=== PATIENT | male | born 1970 | race Caucasian/White ===

== ENCOUNTER 2019-08-06 20:42 | Observation (INO) | payer BC ==
[2019-08-06 21:08] LABS: Absolute Lymphocytes (CBC) 2.6 K/uL (0.7-4.9); Basophils % 0.8 % (0-1.3); Lymphocytes % 32.6 % (15.3-44.8); MPV 7.2 fL (7.6-11.3); RBC Red Blood Cell Count 4.99 M/uL (4.33-5.43)
[2019-08-06 21:09] LABS: Protime INR 1.04
[2019-08-06] MEDS ORDERED: ONDANSETRON 4 MG/2 ML VIAL ONE (21:27)
[2019-08-06] MEDS ORDERED: MORPHINE 4 MG/ML SYR ONE (21:27)
[2019-08-06 21:38] LABS: ALT/SGPT 43 U/L (12-78); AST/SGOT 25 U/L (15-37); Albumin 3.9 g/dL (3.4-5.0); Alkaline Phosphatase 73 U/L (45-117); BUN Blood Urea Nitrogen 13 mg/dL (7-18); Bicarbonate 28 mmol/L (21-32); Bilirubin Direct < 0.1 mg/dL (0-0.2); Bilirubin Total 0.3 mg/dL (0.2-1.0); Glucose Level 122 mg/dL (74-106); Magnesium 2.2 mg/dL (1.8-2.4); NT PRO-BNP 8 pg/mL (<125); Potassium 3.9 mmol/L (3.5-5.1); Protein, Total 7.4 g/dL (6.4-8.2); Sodium Level 140 mmol/L (136-145); Troponin (Emerg Dept Use Only) < 0.02 ng/mL (0.0-0.045)
--- NOTE | 2019-08-06 22:28 | RAD REPORT ---
EXAM DESCRIPTION: RAD - Chest Single View - 08/06/2019 9:52 pm CLINICAL HISTORY: CHEST PAIN Chest pain. COMPARISON: Chest Single View dated 11/24/2017 FINDINGS: Portable technique limits examination quality. The lungs are grossly clear. The heart is normal in size. No displaced fractures. IMPRESSION: No acute intrathoracic process suspected.
[2019-08-06] MEDS ORDERED: KETOROLAC 30 MG/ML INJ ONE (22:47)
[2019-08-06] MEDS ORDERED: ENOXAPARIN 100 MG/ML SYR SQ ONE (23:14)
[2019-08-06] MEDS ORDERED: NITROGLYCERIN 1 GM PKT TD ONE (23:14)
--- NOTE | 2019-08-06 23:16 | EDPHYS ---
Physician Documentation [facility] Name: Chandana Le Age: 48 yrs Sex: Male : 1970 Arrival Date: 08/06/2019 Time: 20:42 Bed 4 Private MD: ED Physician Philip Perez HPI: 08/06 22:40 This 48 yrs old Male presents to ER via Ambulatory with complaints of Chest tw4 Pain. 22:40 The patient or guardian reports chest pain that is located primarily in the anterior tw4 chest wall, left. Onset: today. The pain radiates to Associated signs and symptoms: The patient has no apparent associated signs or symptoms. The chest pain is described as sharp. Duration: The patient or guardian reports a single episode. Severity of pain: At its worst the pain was moderate in the emergency department the pain is unchanged. The patient has not experienced similar symptoms in the past. Historical: - Allergies: 20:54 PENICILLINS; tl1 - Home Meds: 20:54 Lisinopril Oral [Active]; Phenytoin Oral [Active]; depression medication [Active]; tl1 - PMHx: 20:54 Seizures; Hypertension; Depression; tl1 - PSHx: 20:54 None; tl1 - Immunization history:: Adult Immunizations up to date. - Social history:: Smoking status: Patient/guardian denies using tobacco, Patient/guardian denies using alcohol, street drugs. - Ebola Screening: : Patient negative for fever greater than or equal to 101.5 degrees Fahrenheit, and additional compatible Ebola Virus Disease symptoms Patient denies exposure to infectious person Patient denies travel to an Ebola-affected area in the 21 days before illness onset. ROS: 22:40 Constitutional: Negative for fever, chills, and weight loss, Eyes: Negative for injury, tw4 pain, redness, and discharge, Cardiovascular: Negative for chest pain, palpitations, and edema, Respiratory: Negative for shortness of breath, cough, wheezing, and pleuritic chest pain, Abdomen/GI: Negative for abdominal pain, nausea, vomiting, diarrhea, and constipation, Back: Negative for injury and pain, MS/Extremity: Negative for injury and deformity, Skin: Negative for injury, rash, and discoloration. Exam: 22:40 Head/Face: Normocephalic, atraumatic. Eyes: Pupils equal round and reactive to light, tw4 extra-ocular motions intact. Lids and lashes normal. Conjunctiva and sclera are non-icteric and not injected. Cornea within normal limits. Periorbital areas with no swelling, redness, or edema. Chest/axilla: Normal chest wall appearance and motion. Nontender with no deformity. No lesions are appreciated. Cardiovascular: Regular rate and rhythm with a normal S1 and S2. No gallops, murmurs, or rubs. Normal PMI, no JVD. No pulse deficits. Respiratory: Lungs have equal breath sounds bilaterally, clear to auscultation and percussion. No rales, rhonchi or wheezes noted. No increased work of breathing, no retractions or nasal flaring. Abdomen/GI: Soft, non-tender, with normal bowel sounds. No distension or tympany. No guarding or rebound. No evidence of tenderness throughout. Back: No spinal tenderness. No costovertebral tenderness. Full range of motion. MS/ Extremity: Pulses equal, no cyanosis. Neurovascular intact. Full, normal range of motion. Neuro: Awake and alert, GCS 15, oriented to person, place, time, and situation. Cranial nerves II-XII grossly intact. Motor strength 5/5 in all extremities. Sensory grossly intact. Cerebellar exam normal. Normal gait. 22:40 Constitutional: The patient appears in obvious distress, mildly distressed. Vital Signs: 20:52 BP 165 / 96; Pulse 91; Resp 15; Temp 98.7(O); Pulse Ox 97% ; Weight 94.35 kg; Height 5 tl1 ft. 7 in. (170.18 cm); Pain 8/10; 21:15 BP 143 / 81; Pulse 84; Resp 17; Pulse Ox 98% on R/A; lp1 21:33 BP 135 / 87; Pulse 78; Resp 13; Pulse Ox 96% on R/A; lp1 22:20 BP 136 / 77; Pulse 75; Resp 15; Pulse Ox 97% on R/A; lp1 23:30 BP 126 / 74; Pulse 72; Resp 16; Pulse Ox 96% on R/A; lp1 08/07 00:09 BP 131 / 68; Pulse 80; Resp 19; Pulse Ox 98% on R/A; Pain 5/10; lp1 08/06 20:52 Body Mass Index 32.58 (94.35 kg, 170.18 cm) tl1 MDM: 08/06 20:47 Patient medically screened. tw4 08/07 00:01 Differential diagnosis: abnormal EKG, acute myocardial infarction, anxiety, tw4 myocarditis, pancreatitis, pulmonary embolus, stable angina, thoracic aortic disection, unstable angina. The patient was given aspirin in the Emergency Department. Data reviewed: vital signs, nurses notes. Counseling: I had a detailed discussion with the patient and/or guardian regarding: the historical points, exam findings, and any diagnostic results supporting the discharge/admit diagnosis, lab results, radiology results. Physician consultation: Danis Malone DO regarding admission, to the telemetry unit. and will see patient in inpatient room. Special discussion:. 01:35 HEART Score: History: Moderately Suspicious (1), ECG: Normal (0), Age: > 45 and < 65 tw4 years (1), Risk Factors: 1 or 2 risk factors (1), Troponin: < or = 1 x Normal Limit (0), Total Score = 2. Data interpreted: school lunch monitor: rhythm is normal sinus rhythm, Pulse oximetry: Interpretation: normal. Test interpretation: by ED physician or midlevel provider: ECG, plain radiologic studies. 01:42 Medication response: morphine partially relieved the patient's pain. Response to tw4 treatment: the patient's symptoms have mildly improved after treatment, and as a result, I will admit patient. ED course: Pt rested comfortably on the stretcher. Pt complained of pain after morphine. CT scan was negative for dissection. Suspicion for PE was low. Will admit for ACS and treat with Lovenox and nitrates. 08/06 20:58 Order name: Basic Metabolic Panel tw4 08/06 20:58 Order name: CBC with Diff tw4 08/06 20:58 Order name: LFT's tw4 08/06 20:58 Order name: Magnesium tw4 08/06 20:58 Order name: NT PRO-BNP tw4 08/06 20:58 Order name: PT-INR tw4 08/06 20:58 Order name: Troponin (emerg Dept Use Only) tw4 08/06 20:58 Order name: XRAY Chest (1 view) tw4 08/06 21:04 Order name: Angio Aorta For Dissection EDWI 08/06 20:58 Order name: EKG; Complete Time: 20:58 tw4 08/06 20:58 Order name: Cardiac monitoring; Complete Time: 21:18 tw4 08/06 20:58 Order name: EKG - Nurse/Tech; Complete Time: 21:18 tw4 08/06 20:58 Order name: IV Saline Lock; Complete Time: 21:18 tw4 08/06 20:58 Order name: Labs collected and sent; Complete Time: 21:18 tw4 08/06 20:58 Order name: O2 Per Protocol; Complete Time: 21:18 tw4 08/06 20:58 Order name: O2 Sat Monitoring; Complete Time: 21:18 tw4 EC:00 Rhythm is regular. QRS [place] is Normal. CO interval is normal. QRS interval is normal. tw4 QT interval is normal. No Q waves. T waves are Normal. No ST changes noted. Clinical impression: Normal ECG. Interpreted by me. Reviewed by me. Administered Medications: 08/06 21:32 Drug: Zofran 4 mg Route: IVP; Site: left antecubital; lp1 22:00 Follow up: Response: No adverse reaction lp1 21:32 Drug: morphine 4 mg {Note: RASS 1.} Route: IVP; Site: left antecubital; lp1 22:00 Follow up: Response: Pain is decreased; RASS: Alert and Calm (0) lp1 22:48 Drug: TORadol 30 mg Route: IVP; Site: left antecubital; lp1 23:15 Follow up: Response: No adverse reaction; No change in condition lp1 23:21 Drug: Nitro-Bid Ointment 2 % 1 inches Route: Transdermal; Site: anterior chest wall; lp1 23:22 Drug: Lovenox 1 mg/kg Route: Sub-Q; Site: right lower abdomen; lp1 08/07 00:10 Follow up: Response: No adverse reaction lp1 Disposition: 08/06/19 23:15 Hospitalization ordered by Danis Malone for Observation. Preliminary diagnosis is Unstable angina. - Bed requested for Telemetry/MedSurg (observation). - Status is Observation. lp1 - Condition is Stable. - Problem is new. - Symptoms have improved. UTI on Admission? No Signatures: Dispatcher [employer] [facility] Sherita Núñez RN RN Nikia Hernandez RN RN lp1 Mandi Don, RN RN tl1 Philip Perez MD MD tw4 Corrections: (The following items were deleted from the chart) 08/06 21:04 21:00 Dissection W/ Wo Con+CT.RAD.BRZ ordered. EDMS EDMS 23:49 23:15 Hospitalization Ordered by Philip Perez MD for Observation. Preliminary diagnosis is Unstable angina. Bed requested for Telemetry/MedSurg (observation). Status is Observation. Condition is Stable. Problem is new. Symptoms have improved. UTI on Admission? No. tw4 08/07 00:11 08/06 23:49 08/06/2019 23:15 Hospitalization Ordered by Danis Malone DO for lp1 Observation. Preliminary diagnosis is Unstable angina. Bed requested for Telemetry/MedSurg (observation). Status is Observation. Condition is Stable. Problem is new. Symptoms have improved. UTI on Admission? No. mw
--- NOTE | 2019-08-06 23:16 | ER ---
Nurse's Notes [facility] Name: Chandana Le Age: 48 yrs Sex: Male : 1970 Arrival Date: 08/06/2019 Time: 20:42 Bed 4 Private MD: Diagnosis: Unstable angina Presentation: 08/06 20:51 Presenting complaint: Patient states: Chest pain started around 3 hours ago and it tl1 radiates to my back. I have been sweating and feel nauseated. I have also had numbness in my feet for 2 weeks. Transition of care: patient was not received from another setting of care. Onset of symptoms was August 06, 2019. Risk Assessment: Do you want to hurt yourself or someone else? Patient reports no desire to harm self or others. Initial Sepsis Screen: Does the patient meet any 2 criteria? No. Patient's initial sepsis screen is negative. Does the patient have a suspected source of infection? No. Patient's initial sepsis screen is negative. Care prior to arrival: None. 20:51 Method Of Arrival: Ambulatory tl1 20:51 Acuity: GLEN 2 tl1 Historical: - Allergies: 20:54 PENICILLINS; tl1 - Home Meds: 20:54 Lisinopril Oral [Active]; Phenytoin Oral [Active]; depression medication [Active]; tl1 - PMHx: 20:54 Seizures; Hypertension; Depression; tl1 - PSHx: 20:54 None; tl1 - Immunization history:: Adult Immunizations up to date. - Social history:: Smoking status: Patient/guardian denies using tobacco, Patient/guardian denies using alcohol, street drugs. - Ebola Screening: : Patient negative for fever greater than or equal to 101.5 degrees Fahrenheit, and additional compatible Ebola Virus Disease symptoms Patient denies exposure to infectious person Patient denies travel to an Ebola-affected area in the 21 days before illness onset. Screenin:17 Abuse screen: Denies threats or abuse. Denies injuries from another. Nutritional lp1 screening: No deficits noted. Tuberculosis screening: No symptoms or risk factors identified. Fall Risk None identified. Assessment: 20:45 General: Appears uncomfortable, Behavior is anxious. Pain: Complains of pain in chest lp1 Pain radiates to back and left arm Pain currently is 9 out of 10 on a pain scale. Quality of pain is described as pressure, sharp, Pain began 3 hours ago. Neuro: Level of Consciousness is awake, alert, obeys commands, Oriented to person, place, time, situation. Cardiovascular: Capillary refill < 3 seconds in bilateral fingers toes. Respiratory: Respiratory effort is even, Breath sounds are clear bilaterally. GI: Abdomen is non-distended, Reports nausea. : No signs and/or symptoms were reported regarding the genitourinary system. EENT: No signs and/or symptoms were reported regarding the EENT system. Derm: Skin is intact, Skin is clammy, Skin is normal. Musculoskeletal: No deficits noted. 21:30 Reassessment: Provider notified of patient discomfort to chest and back; Verbal order lp1 for Morphine 4 mg IV, Zofran 4 mg IV. 22:19 Reassessment: Patient returned from CT; States "They gave me that stuff in my IV and lp1 now the pain is back"; States pain to chest, radiating to back. 23:45 Reassessment: Patient appears in no apparent distress at this time. Patient states some lp1 relief, "The pain comes and goes"; Family at bedside. Vital Signs: 20:52 BP 165 / 96; Pulse 91; Resp 15; Temp 98.7(O); Pulse Ox 97% ; Weight 94.35 kg; Height 5 tl1 ft. 7 in. (170.18 cm); Pain 8/10; 21:15 BP 143 / 81; Pulse 84; Resp 17; Pulse Ox 98% on R/A; lp1 21:33 BP 135 / 87; Pulse 78; Resp 13; Pulse Ox 96% on R/A; lp1 22:20 BP 136 / 77; Pulse 75; Resp 15; Pulse Ox 97% on R/A; lp1 23:30 BP 126 / 74; Pulse 72; Resp 16; Pulse Ox 96% on R/A; lp1 08/07 00:09 BP 131 / 68; Pulse 80; Resp 19; Pulse Ox 98% on R/A; Pain 5/10; lp1 08/06 20:52 Body Mass Index 32.58 (94.35 kg, 170.18 cm) tl1 ED Course: 08/06 20:42 Patient arrived in ED. ds1 20:45 Patient has correct armband on for positive identification. Placed in gown. Bed in low lp1 position. Call light in reach. monitor technician on. Pulse ox on. NIBP on. 20:47 Philip Perez MD is Attending Physician. tw4 20:51 Nikia Jackson, RN is Primary Nurse. lp1 20:52 Triage completed. tl1 20:54 Arm band placed on right wrist. EKG completed in triage. Results shown to MD. tl1 20:54 No provider procedures requiring assistance completed. Inserted saline lock: 20 gauge tl1 in left antecubital area, using aseptic technique. Blood collected. 21:03 Radiology exam delayed due to lab results not completed at this time. (BUN/Creatinine). sj 21:17 Patient maintains SpO2 saturation greater than 95% on room air. lp1 21:52 XRAY Chest (1 view) In Process Unspecified. EDMS 22:04 Angio Aorta For Dissection In Process Unspecified. EDMS 23:14 Philip Perez MD is Hospitalizing Provider. tw4 23:49 Hospitalizing Provider role handed off by Philip Perez MD 23:49 Danis Malone DO is Hospitalizing Provider. mw 23:53 Patient admitted, IV remains in place. lp1 Administered Medications: 21:32 Drug: Zofran 4 mg Route: IVP; Site: left antecubital; lp1 22:00 Follow up: Response: No adverse reaction lp1 21:32 Drug: morphine 4 mg {Note: RASS 1.} Route: IVP; Site: left antecubital; lp1 22:00 Follow up: Response: Pain is decreased; RASS: Alert and Calm (0) lp1 22:48 Drug: TORadol 30 mg Route: IVP; Site: left antecubital; lp1 23:15 Follow up: Response: No adverse reaction; No change in condition lp1 23:21 Drug: Nitro-Bid Ointment 2 % 1 inches Route: Transdermal; Site: anterior chest wall; lp1 23:22 Drug: Lovenox 1 mg/kg Route: Sub-Q; Site: right lower abdomen; lp1 08/07 00:10 Follow up: Response: No adverse reaction lp1 Outcome: 08/06 23:15 Decision to Hospitalize by Provider. tw4 23:54 Condition: stable lp1 23:54 Instructed on the need for admit. 08/07 00:07 Admitted to Tele accompanied by tech, family with patient, via wheelchair, room 409, lp1 with chart, Report called to TOSHIA Maloney 00:11 Patient left the ED. lp1 Signatures: Dispatcher [employer] EDMS Sherita Núñez RN RN Raquel Westfall Demi ds1 Nikia Jackson RN RN lp1 Mandi Don RN RN tl1 Philip Perez MD MD tw4
--- NOTE | 2019-08-06 23:27 | P.HP ---
Certification for Inpatient Patient admitted to: Observation With expected LOS: <2 Midnights Patient will require the following post-hospital care: None Practitioner: I am a practitioner with admitting privileges, knowledge of patient current condition, hospital course, and medical plan of care. Services: Services provided to patient in accordance with Admission requirements found in Title 42 Section 412.3 of the Code of Federal Regulations Patient History Date of Service: 08/06/19 Primary Care Provider: Dr. White Reason for admission: Chest pain History of Present Illness: 48-year-old male with history of hypertension and seizure disorder. Patient reported chest pain earlier today. He had pain to the right side of the chest. It felt like someone was sitting on him. It was a pressure-like sensation. The pain continued to increase. It was associated with nausea but no vomiting. He denied any shortness of breath. He has not seen Cardiology for this in the past. Decided come to the ER for further evaluation. In the ER patient evaluated. EKG shows no significant EKG changes. Blood pressure stable. Chest x-ray unremarkable. CT chest dissection unremarkable. Initial troponin unremarkable. Sodium 140, potassium 3.9, creatinine 1.1 GFR 72. Glucose 122. Due to the nature of his symptoms the patient was admitted for further evaluation. When I saw the patient in the ER, pain improved. Patient had been given morphine in the ER. Allergies No Known Allergies Allergy (Unverified 11/24/17 17:24) Home medications list reviewed: Yes - Past Medical/Surgical History Diabetic: No -: Hypertension -: Seizure disorder Past Surgical History: Patient denies surgical history Psychosocial/ Personal History: Patient is . He works as plant electrician - Family History Family History: Reviewed- Non-Contributory - Social History Smoking Status: Never smoker Alcohol use: No CD- Drugs: No Caffeine use: Yes Place of Residence: Home Review of Systems General: As per HPI Eyes: Unremarkable ENT: Unremarkable Respiratory: Unremarkable Cardiovascular: Chest Pain, As per HPI Gastrointestinal: Nausea, As per HPI Genitourinary: Unremarkable Musculoskeletal: Back Pain, As per HPI Integumentary: Unremarkable Neurological: Unremarkable Lymphatics: Unremarkable Physical Examination - Physical Exam General: Alert, In no apparent distress, Oriented x3, Cooperative HEENT: Atraumatic, Normocephalic, PERRLA, Mucous membr. moist/pink Neck: Supple, No Thyromegaly Respiratory: Clear to auscultation bilaterally, Normal air movement Cardiovascular: Normal pulses, Regular rate/rhythm Gastrointestinal: Normal bowel sounds, Soft and benign, Non-distended, No ascites, No tenderness, No masses, No rebound, No guarding Musculoskeletal: No contractures, No erythema, No tenderness, No warmth Integumentary: No tenderness/swelling, No erythema, No warmth, No cyanosis Neurological: Normal speech, Normal strength at 5/5 x4 extr, Normal tone, Normal affect - Studies Laboratory Data (last 24 hrs) 08/06/19 20:45: PT 12.3, INR 1.04 08/06/19 20:45: WBC 8.0, Hgb 14.3, Hct 42.0, Plt Count 299 08/06/19 20:45: Sodium 140, Potassium 3.9, BUN 13, Creatinine 1.10, Glucose 122 H, Magnesium 2.2, Total Bilirubin 0.3, AST 25, ALT 43, Alkaline Phosphatase 73 Assessment and Plan - Plan Impression: Chest pain Hypertension Seizure disorder Plan: Chest pain: Patient admitted for further evaluation. Will continue to monitor telemetry and cardiac enzymes. Will obtain echocardiogram. Will consult cardiology to further evaluate. Will start aspirin, continue lisinopril, and provide Lipitor. Will check fasting lipid panel in the morning. DVT prophylaxis-Lovenox initiated. Will keep the patient NPO after midnight as the patient may require cardiac evaluation. Await Cardiology recommendation. Consider inpatient versus outpatient workup. Anticipate discharge within the next 24 hr pending clinical evaluation. I will turn the service over to Dr. Qureshi tomorrow. I will go over the plan of care with him. Hypertension: Restart lisinopril 10 mg daily. Will monitor and adjust appropriately. Seizure disorder: Will continue his medication of phenotype owing 300 mg every a.m. and 400 mg every p.m.. Discharge Plan: Home Plan to discharge in: 24 Hours - Advance Directives Does patient have a Living Will: No Does patient have a Durable POA for Healthcare: No - Code Status/Comfort Care Code Status Assessed: Yes (Patient is full code) Time Spent Managing Pts Care (In Minutes): 55
[2019-08-07] MEDS ORDERED: PHENYTOIN ER 100 MG CAP PO SCH ×2 (00:18→02:00)
[2019-08-07] MEDS ORDERED: HYDROCODONE/APAP 7.5/325 MG TAB PO PRN (00:18)
[2019-08-07] MEDS ORDERED: ACETAMINOPHEN 500 MG TAB PO PRN (00:18)
[2019-08-07] MEDS ORDERED: ONDANSETRON 4 MG/2 ML VIAL IV PRN (00:18)
[2019-08-07] MEDS ORDERED: TRAMADOL HCL 50 MG TAB PO PRN (00:18)
[2019-08-07 00:58] VITALS: BMI 32.4
[2019-08-07 03:58] LABS: Urine Appearance CLEAR; Urine Bilirubin NEGATIVE (NEG); Urine Blood NEGATIVE (NEG); Urine Color YELLOW; Urine Glucose NEGATIVE (NEG); Urine Protein NEGATIVE (NEG); Urine Specific Gravity >=1.030 (1.005-1.030); Urine Urobilinogen 0.2 mg/dL (0.2-1.0)
[2019-08-07 04:38] LABS: Urine Microscopic Reflex NO UMIC
[2019-08-07 05:25] LABS: BUN Blood Urea Nitrogen 19 mg/dL (7-18); Bicarbonate 27 mmol/L (21-32); CKMB Creatine Kinase MB 1.2 ng/mL (0.3-3.6); Creatine Phosphokinase 102 U/L (39-308); Glucose Level 107 mg/dL (74-106); HDL Cholesterol 39 mg/dL (40-60); LDL Cholesterol, Calculated ND (<130); Magnesium 2.1 mg/dL (1.8-2.4); Potassium 3.9 mmol/L (3.5-5.1); Sodium Level 139 mmol/L (136-145); Troponin I < 0.02 ng/mL (0.0-0.045)
[2019-08-07 05:37] LABS: LDL, Direct 106 mg/dL (100-129)
[2019-08-07] MEDS ORDERED: POTASSIUM CL SA 10 MEQ TAB PO ONE (05:48)
[2019-08-07 06:00] VITALS: TEMP 97.7
--- NOTE | 2019-08-07 06:29 | EKG ---
Test Date: 2019-08-06 Test Time: 20:49:35 Director Of Critical Care: REHANA MEASUREMENT RESULTS: Intervals: Rate: 89 [place]: 134 QRSD: 70 QT: 346 QTc: 420 [place]: P: 24 [place]: 134 QRS: 17 T: 22 INTERPRETIVE STATEMENTS: Normal sinus rhythm Normal ECG Compared to ECG 11/08/2005 23:39:00 Sinus tachycardia no longer present Electronically Signed On 08-07-19 06:29:20 CDT by Manoj Forbes
[2019-08-07] MEDS: ASPIRIN EC 81 MG TAB PO SCH ×2 (08:52→10:18)
[2019-08-07] MEDS: PHENYTOIN ER 100 MG CAP PO SCH ×2 (08:53→10:17)
[2019-08-07] MEDS: LISINOPRIL 10 MG TAB PO SCH ×2 (08:57→10:17)
[2019-08-07] MEDS: FAMOTIDINE 20 MG TAB PO SCH ×2 (08:58→10:18)
[2019-08-07] MEDS ORDERED: ENOXAPARIN 40 MG/0.4 ML SQ SCH ×2 (09:00→21:00)
--- NOTE | 2019-08-07 09:36 | RAD REPORT ---
EXAM DESCRIPTION: US - Abdomen Exam Limited - 08/07/2019 9:15 am CLINICAL HISTORY: gallstone COMPARISON: No comparisons FINDINGS: The gallbladder demonstrates no gallstones. No pericholecystic fluid or gallbladder wall t hickening. The common bile duct is normal measuring 4-5 mm. The liver demonstrates no findings of intrahepatic biliary dilatation. IMPRESSION: Unremarkable examination.
--- NOTE | 2019-08-07 09:53 | CON ---
Chief Complaint: Chest pain. History Of Present Illness: Yesterday, the patient was sitting. He had been eating when he had the onset of pain in the right side of his chest. It radiated to the right shoulder blade. Since he has been in the hospital, EKGs and cardiac enzymes were normal. He has not had an examination of his ga llbladder at this point. The patient has never had myocardial infarction or stroke. Does not have d iabetes. He uses tobacco. He chews tobacco. He has never had any kind of vascular surgery or inter vention. He has normal exercise tolerance. He has had no previous surgeries. He has had a chest x- ray that looks normal. A CT scan looking for dissection has been done and interpretation was not carla ilable readily and have to call to get the results I think, obviously I think he has an abnormal aort a indicating dissection of the pulmonary embolus on that exam, everything else I say will change, but I am very suspicious that the main thing causing his symptoms is cholecystitis. We will do a treadm ill test and echo and if those are normal, we can proceed to checking on his gallbladder. Thank you very much for your kind referral of Mr. Le. I will follow him with you. RHONDA Voice ID: [id number] Report ID: [id number]
--- NOTE | 2019-08-07 10:48 | TREADMILL ---
70% H.R.: 122 85% H.R.: 148 90% H.R.: 157 100% H.R.: 174 DX: CHEST PAIN Date of Study: 08/07/19 Ht: 5 7 Wt: 207 lb 0 oz Consulting Physician: TONY MEDICATIONS: TYLENOL, NORCO, ASPIRIN, LIPITOR, LOVENOX, PRINIVIL, ZOFRAN, ULTRAM HISTORY: 48 YEAR OLD MALE WITH COMPLAINTS OF CHEST PAIN. MEDICAL HISTORY OF SEIZURES, HYPERTENSION, DEPRESSION PHYSICIAL EXAMINATION: RESTING B.P.: 131/99 RESTING H.R.: 70 RESTING EKG: NORMAL PROTOCOL: DINORAH ROUTINE EXERCISE TIME: 6:36 MAXIMUM HEART RATE: 127 73 % OF PREDICTED B.P. AT PEAK STRESS: 173/78 H.R. AT 1 MINUTE POST EXERCISE: 109 IMPRESSION: STRESS TEST STOPPED DUE TO FATIQUE. NO SUPRA VENTRICULAR TACHYCARDIA, NO VENTRICULAR TACHYCARDIA, NO PREMATURE VENTRICULAR COMPLEXES. CHEST PAIN UPON INSPIRATORY BREATHING 6 OR 7/10 ON PAIN SCALE. NO ISCHEMIC EKG CHANGES. SUB MAXIMAL NON DIAGNOSTIC TEST.
--- NOTE | 2019-08-07 10:50 | ECHO ---
HEIGHT: 5 ft 7 in WEIGHT: 207 lb 0 oz DATE OF STUDY: 08/07/[address]: Danis Malone DO 2-DIMENSIONAL: YES M.MODE: YES DOPPLER: YES COLOR FLOW: YES TDS: NO PORTABLE: NO DEFINITY: NO BUBBLE STUDY: NO DIAGNOSIS: CHEST PAIN, HYPERTENSION CARDIAC HISTORY: CATHERIZATION: NO SURGERY: NO PROSTHETIC VALVE: NO PACEMAKER: NO MEASUREMENTS (cm) DIASTOLIC (NORMALS) SYSTOLIC (NORMALS) IVSd 1.0 (0.6-1.2) LA Diam 3.5 (1.9-4.0) LVEF 57% LVIDd 4.3 (3.5-5.7) LVIDs 3.0 (2.0-3.5) %FS 30% LVPWd 1.0 (0.6-1.2) Ao Diam 3.2 (2.0-3.7) 2 DIMENSIONAL ASSESSMENT: RIGHT ATRIUM: NORMAL LEFT ATRIUM: NORMAL RIGHT VENTRICLE: NORMAL LEFT VENTRICLE: NORMAL TRICUSPID VALVE: NORMAL MITRAL VALVE: NORMAL PULMONIC VALVE: NORMAL AORTIC VALVE: NORMAL PERICARDIAL EFFUSION: NONE AORTIC ROOT: NORMAL LEFT VENTRICULAR WALL MOTION: NORMAL. DOPPLER/COLOR FLOW: NORMAL. COMMENTS: NORMAL 2D ECHO WITH DOPPLER. TECHNOLOGIST: GERONIMO HILARIO
--- NOTE | 2019-08-07 10:58 | RAD REPORT ---
EXAM DESCRIPTION: Angio Aorta For Dissection CLINICAL HISTORY: 48 years Male PAIN TECHNIQUE: Contiguous axial images obtained through the chest, abdomen, and pelvis during the rapid administration of IV contrast. Coronal and sagittal reformatted images provided. This CT exam was performed according to our departmental dose-optimization program, which includes on e or more of the following dose reduction techniques: automated exposure control, adjustment of the m A and/or kV according to patient size, and/or use of iterative reconstruction technique. COMPARISON: No prior exams provided for comparison. FINDINGS: There is no aortic aneurysm, dissection, or rupture. The heart is normal in size without pericardial effusion. The major branches of the aorta are patent. No mediastinal or retroperitoneal hemorrhage. No visualized pulmonary embolus. 2 mm right middle lobe pulmonary nodule does not require follow-up. The lungs are otherwise clear. No pleural effusion or pneumothorax. No lymphadenopathy in the chest. The central airways are patent. The liver, biliary tree, gallbladder, pancreas, spleen, adrenal glands, left kidney, urinary bladder, and osseous structures are normal. Nonobstructing calculi in the lower pole of the right kidney measure up to 9 mm. There is no bowel inflammation, obstruction, free intraperitoneal air, or ascites. The appendix is no rmal. IMPRESSION: No aortic aneurysm, dissection, or rupture. No acute findings in the chest, abdomen, or pelvis. Nonobstructing intrarenal calculi on the right. Electronically signed by: Yanique Ennis MD 08/06/2019 10:36 PM CDT Due to temporary technical issues with the PACS/Fluency reporting system, reports are being signed by the in house radiologist as a courtesy to ensure prompt reporting. The interpreting radiologist is f ully responsible for the content of the report.
[2019-08-07 13:51] LABS: CKMB Creatine Kinase MB < 1.0 ng/mL (0.3-3.6); Creatine Phosphokinase 93 U/L (39-308); Troponin I < 0.02 ng/mL (0.0-0.045)
[2019-08-07 14:31] VITALS: O2SAT 96
[2019-08-07 17:07] VITALS: BP 129/76
--- NOTE | 2019-08-07 19:05 | PN ---
Date of Progress Note: 08/07/2019 Subjective: Patient is seen and examined. Chart reviewed and case discussed with RN. Patient states his pain is significantly better. Had exercise stress test today, which he was unable to complete. Medications: List reviewed. Physical Examination: Vital Signs: Temperature 97.7, heart rate 62, blood pressure 129/72, respirations 16, O2 95% on room air. General: Awake, alert, oriented x3. No acute distress, obese male. CV: S1, S2. Regular rate and rhythm. Peripheral pulses present. Respiratory: Moving air well bilaterally. No wheezing or stridor. No use of accessory muscles. Gastrointestinal: Abdomen is soft, nontender, nondistended. Positive bowel sounds. No guarding or rigidity. Extremities: No clubbing, cyanosis, or edema. No calf tenderness. Neuro: Cranial nerves 2 through 12 intact grossly. No focal neurological deficits. Speech is normal. Laboratory Data: Sodium 139, potassium 3.9, chloride 106, CO2 27, BUN 19, creatinine 0.87, glucose 107, calcium 8, magnesium 2.1, triglycerides 454, cholesterol 191, LDL 106, HDL 39. TSH is 3.2. Echocardiogram shows EF of 57%. Exercise stress tests; stress test stopped due to fatigue. No SVT. No ventricular tachycardia. No premature ventricular complexes, chest pain upon inspiratory breathing. No ischemic EKG changes, maximal nondiagnostic test. Abdominal ultrasound shows unremarkable examination. No gallstones. No gallbladder wall thickening. Common bile duct is normal. Assessment: A 48-year-old male with: 1. Chest pain, rule out acute coronary syndrome. Exercise stress test was nondiagnostic. Cardiology recommending cardiac catheterization in a.m. CT dissection was negative. Abdominal ultrasound does not show any gallbladder pathology. Chest x-ray is also clear. We will continue with chest pain guidelines and follow up with further cardiac workup. Patient's triglyceride levels are elevated. Patient has been counseled. Continue with statin. 2. Mixed hyperlipidemia. Continue statin. 3. Essential hypertension. Continue lisinopril. 4. Seizure disorder. We will continue seizure precautions and phenytoin. 5. Obesity. BMI 32. Plan: Complete cardiac workup. ADDENDUM: Patient left AM. Was counseled to stay. States he wants to go to [place] for further workup. SA/MODL Voice ID: [id number] Report ID: [id number] RASHIDA
[2019-08-07] MEDS ORDERED: ATORVASTATIN 40 MG TAB PO SCH (21:00)
== END 2019-08-07 18:30 | disposition left against medical advice (07) ==
LOC: ER 20:42 → ERHOLD 23:23 → 4TH 08-07 00:03
PROVIDERS: ADMIT Family Medicine; ATTEND Family Medicine
DX: R07.9 Chest pain, unspecified (principal); I10 Essential (primary) hypertension; G40.909 Epilepsy, unspecified, not intractable, without status epilepticus; E78.2 Mixed hyperlipidemia; E66.9 Obesity, unspecified; Z68.32 Body mass index [BMI] 32.0-32.9, adult
CPT/HCPCS: 93017; 93005; 93306; 85025; 80048 ×2; 36415; 83721; 83735 ×2; 82550 ×2; 85610; 80061; 80076; 84443; 81003; 84484 ×3; 82553 ×2; 84439; 83880; 71275; 74175; 71045; 76705; 96375; 96372; 96374; 99285; Q9967; J1650; J2405; G0378 ×2

== ENCOUNTER 2021-02-03 10:39 | Emergency (ER) | payer BC ==
[2021-02-03] MEDS ORDERED: HYDROCODONE/APAP 10/325 TAB ONE (13:14)
[2021-02-03] MEDS ORDERED: DIAZEPAM 5 MG TABLET ONE (13:15)
--- NOTE | 2021-02-03 13:37 | RAD REPORT ---
EXAM DESCRIPTION: CT - C Spine Wo Con - 02/03/2021 1:28 pm CLINICAL HISTORY: PAIN Neck injury, radiculopathy COMPARISON: No comparisons FINDINGS: Vertebral body heights are maintained. Moderate spondylosis with disc bulge and endplate o steophyte noted at C5-6. No evidence of acute cervical spine fracture or subluxation. Prevertebral soft tissues are normal in thickness. IMPRESSION: Moderate C5-6 spondylosis is present with prominent posterior disc/osteophyte complex. F ollowup nonemergent MR imaging of the cervical spine would be recommended. All CT scans are performed using dose optimization technique as appropriate and may include automated exposure control or mA/KV adjustment according to patient size.
--- NOTE | 2021-02-03 14:53 | ER ---
Nurse's Notes [facility] Name: Chandana Le Age: 50 yrs Sex: Male : 1970 Arrival Date: 02/03/2021 Time: 10:41 Bed 24 Private MD: Diagnosis: Radiculopathy, cervical region Presentation: 02/03 11:16 Chief complaint: Patient states: Pain to L side of neck and down left arm that is ss described as throbbing, tightness/ shooting. Pt reports when he turns his neck it hurts more. Denies injury. Denies CP. Coronavirus screen: Client denies travel out of the [place] in the last 14 days. Ebola Screen: Patient denies exposure to infectious person. Patient denies travel to an Ebola-affected area in the 21 days before illness onset. Initial Sepsis Screen: Does the patient meet any 2 criteria? No. Patient's initial sepsis screen is negative. Does the patient have a suspected source of infection? No. Patient's initial sepsis screen is negative. Risk Assessment: Do you want to hurt yourself or someone else? Patient reports no desire to harm self or others. Onset of symptoms was February 02, 2021. 11:16 Method Of Arrival: Ambulatory ss 11:16 Acuity: GLEN 3 ss Historical: - Allergies: 11:18 PENICILLINS; ss - PMHx: 11:18 Depression; Hypertension; Seizures; High Cholesterol; ss - Immunization history:: Adult Immunizations up to date. - Social history:: Smoking status: Patient reports use of chewing tobacco. Screenin:24 Abuse screen: Denies threats or abuse. Denies injuries from another. Nutritional hb screening: No deficits noted. Tuberculosis screening: No symptoms or risk factors identified. Fall Risk None identified. Assessment: 12:24 General: Appears in no apparent distress. Behavior is calm, cooperative. Pain: Pain hb currently is 9 out of 10 on a pain scale. Neuro: Level of Consciousness is awake, alert, obeys commands, Oriented to person, place, time, situation. Cardiovascular: Patient's skin is warm and dry. Respiratory: Respiratory effort is even, unlabored, Respiratory pattern is regular, symmetrical. GI: No signs and/or symptoms were reported involving the gastrointestinal system. : No signs and/or symptoms were reported regarding the genitourinary system. EENT: No signs and/or symptoms were reported regarding the EENT system. Derm: Skin is pink, warm \T\ dry. Musculoskeletal: Reports left sided neck pain that radiates to left arm. 14:00 Reassessment: Patient appears in no apparent distress at this time. Patient and/or hb family updated on plan of care and expected duration. Pain level reassessed. Patient is alert, oriented x 3, equal unlabored respirations, skin warm/dry/pink. Vital Signs: 11:16 BP 133 / 93; Pulse 63; Resp 17; Temp 98.4; Pulse Ox 98% on R/A; Weight 88.45 kg; Height ss 5 ft. 7 in. (170.18 cm); Pain 9/10; 11:16 Body Mass Index 30.54 (88.45 kg, 170.18 cm) ED Course: 10:41 Patient arrived in ED. rg4 11:18 Triage completed. ss 11:18 Arm band placed on right wrist. 12:17 Nona Martinez, RN is Primary Nurse. 12:18 Lanre Alfredo PA is PHCP. [facility] 12:18 Alexis Morton MD is Attending Physician. [facility] 12:24 Patient has correct armband on for positive identification. Bed in low position. Call light in reach. 13:26 CT C Spine In Process Unspecified. EDMS 15:08 No provider procedures requiring assistance completed. Patient did not have IV access kg during this emergency room visit. Administered Medications: 13:00 Drug: Boring (HYDROcodone-acetaminophen) 10 mg-325 mg 1 tabs Route: PO; hb 14:00 Follow up: Response: No adverse reaction hb 13:00 Drug: Valium (diazepam) 5 mg Route: PO; hb 14:00 Follow up: Response: No adverse reaction hb Outcome: 14:53 Discharge ordered by . [facility] 15:09 Discharged to home ambulatory. kg 15:09 Condition: improved 15:09 Discharge instructions given to patient, Instructed on discharge instructions, follow up and referral plans. Demonstrated understanding of instructions, follow-up care, medications, Prescriptions given X 3. 15:09 Patient left the ED. kg Signatures: Dispatcher [employer] EDID Lanre Alfredo PA PA Anita Beck RN RN Nona Martinez RN RN Aubrie Khan rg4 Naima Retana kg
--- NOTE | 2021-02-03 14:53 | EDPHYS ---
Physician Documentation [facility] Name: Chandana Le Age: 50 yrs Sex: Male : 1970 Arrival Date: 02/03/2021 Time: 10:41 Bed 24 Private MD: ED Physician Alexis Morton HPI: 02/03 12:59 This 50 yrs old Male presents to ER via Ambulatory with complaints of Arm jmm Pain. 12:59 The patient or guardian complains of pain. Onset: The symptoms/episode began/occurred jmm gradually, 3 day(s) ago. Modifying factors: The symptoms are alleviated by nothing. the symptoms are aggravated by movement. Associated signs and symptoms: Pertinent negatives: chest pain. This is a 50 year old male with a history of depression, epilepsy, that presents to the ED with complaints of left arm pain beginning approx 3 days ago. Denies trauma. Pain radiates from the neck, down the left arm. Denies chest pain, denies weakness. Symptoms worsened with rotation of the neck. . Historical: - Allergies: 11:18 PENICILLINS; ss - PMHx: 11:18 Depression; Hypertension; Seizures; High Cholesterol; ss - Immunization history:: Adult Immunizations up to date. - Social history:: Smoking status: Patient reports use of chewing tobacco. ROS: 12:59 Constitutional: Negative for fever, chills, and weight loss, Cardiovascular: Negative [facility] for chest pain, palpitations, and edema, Respiratory: Negative for shortness of breath, cough, wheezing, and pleuritic chest pain. 12:59 MS/extremity: Positive for pain. 12:59 All other systems are negative. Exam: 12:59 Constitutional: This is a well developed, well nourished patient who is awake, alert, jmm and in no acute distress. Head/Face: atraumatic. Eyes: EOMI, no conjunctival erythema appreciated ENT: Moist Mucus Membranes Neck: Trachea midline, Supple Chest/axilla: Normal chest wall appearance and motion. Cardiovascular: Regular rate and rhythm. No edema appreciated Respiratory: Normal respirations, no respiratory distress appreciated 12:59 Skin: General appearance color normal 12:59 Neck: C-spine: ROM/movement: pain. 12:59 Musculoskeletal/extremity: from appreciated. 13:04 ECG was reviewed by the Attending Physician. [facility] Vital Signs: 11:16 BP 133 / 93; Pulse 63; Resp 17; Temp 98.4; Pulse Ox 98% on R/A; Weight 88.45 kg; Height ss 5 ft. 7 in. (170.18 cm); Pain 9/10; 11:16 Body Mass Index 30.54 (88.45 kg, 170.18 cm) ss MDM: 12:47 Patient medically screened. [facility] 14:49 Data reviewed: vital signs, nurses notes. Counseling: I had a detailed discussion with [facility] the patient and/or guardian regarding: the historical points, exam findings, and any diagnostic results supporting the discharge/admit diagnosis, lab results, radiology results, the need for outpatient follow up, to return to the emergency department if symptoms worsen or persist or if there are any questions or concerns that arise at home. ED course: PE findings most consistent with cervical radiculopathy. Patient advised to follow up with neuro surgery for further evaluation. patient understood and agrees with the plan of care. . 02/03 12:59 Order name: CT C Spine; Complete Time: 13:43 [facility] 02/03 12:59 Order name: EKG - Nurse/Tech; Complete Time: 13:09 [facility] EC:04 Rate is 64 beats/min. Rhythm is regular. QRS [place] is Normal. [place] interval is normal. QRS jmm interval is normal. QT interval is normal. No Q waves. T waves are Normal. No ST changes noted. Reviewed by me. Administered Medications: 13:00 Drug: [place] (HYDROcodone-acetaminophen) 10 mg-325 mg 1 tabs Route: PO; hb 14:00 Follow up: Response: No adverse reaction hb 13:00 Drug: Valium (diazepam) 5 mg Route: PO; hb 14:00 Follow up: Response: No adverse reaction hb Disposition: 02/04 06:24 Co-signature as Attending Physician, Alexis Morton MD I agree with the assessment and kdr plan of care. Disposition: 02/03/21 14:53 Discharged to Home. Impression: Radiculopathy, cervical region. - Condition is Stable. - Discharge Instructions: Cervical Radiculopathy. - Prescriptions for Tylenol- Codeine #3 300-30 mg Oral Tablet - take 1 tablet by ORAL route every 4-6 hours As needed; 20 tablet. Zanaflex 4 mg Oral Tablet - take 1 tablet by ORAL route every 8 hours As needed; 20 tablet. Medrol (Frankie) 4 mg Oral Tablets, Dose Pack - take 1 tablet by ORAL route as directed - follow package instructions; 1 packet. - Medication Reconciliation Form, Thank You Letter, Antibiotic Education, Prescription Opioid Use, Work release form form. - Follow up: Private Physician; When: 2 - 3 days; Reason: Recheck today's complaints, Continuance of care, Re-evaluation by your physician. Signatures: Dispatcher [employer] EDMS Alexis Morton MD MD kdr Mickail, Joel, PA PA jmm Smirch, Shelby RN RN ss Nona Martinez RN RN Naima Retana kg Corrections: (The following items were deleted from the chart) 02/03 15:09 14:53 02/03/2021 14:53 Discharged to Home. Impression: Radiculopathy, cervical region. kg Condition is Stable. Forms are Work release form, Medication Reconciliation Form, Thank You Letter, Antibiotic Education, Prescription Opioid Use. Follow up: Private Physician; When: 2 - 3 days; Reason: Recheck today's complaints, Continuance of care, Re-evaluation by your physician. rebekah
[2021-02-03 15:17] VITALS: BP 133/93; TEMP 98.4; O2SAT 98
== END 2021-02-03 15:09 | disposition home or self-care (01) ==
LOC: ER 10:39
DX: M54.12 Radiculopathy, cervical region (principal); I10 Essential (primary) hypertension; Z88.0 Allergy status to penicillin
CPT/HCPCS: 72125; 93005; 99283

== ENCOUNTER 2021-11-15 16:04 | Emergency (ER) | payer SELFPAY ==
[2021-11-15 17:04] LABS: Lymphocytes % 34.7 % (15.3-44.8); MPV 6.7 fL (7.6-11.3); RBC Red Blood Cell Count 5.27 M/uL (4.33-5.43)
[2021-11-15 17:19] LABS: Potassium 3.8 mmol/L (3.5-5.1)
[2021-11-15 17:31] LABS: Urine Blood Negative (Negative); Urine Glucose Negative (Negative); Urine Protein Negative (Negative)
[2021-11-15] MEDS ORDERED: ONDANSETRON 4 MG/2 ML VIAL ONE (17:58)
[2021-11-15] MEDS ORDERED: NA CHLORIDE 0.9% 1,000 ML ONE ×2 (17:58→19:50)
[2021-11-15] MEDS ORDERED: MORPHINE 4 MG/ML SYR ONE ×2 (17:58→19:50)
--- NOTE | 2021-11-15 18:41 | RAD REPORT ---
EXAM DESCRIPTION: CT - Abdomen Pelvis W Contrast - 11/15/2021 6:09 pm CLINICAL HISTORY: Abdominal pain COMPARISON: none. TECHNIQUE: Computed axial tomography of the abdomen pelvis was obtained. 100 cc Isovue-300 was admin istered intravenously. Oral contrast was not requested which limits evaluation of bowel. All CT scans are performed using dose optimization technique as appropriate and may include automated exposure control or mA/KV adjustment according to patient size. FINDINGS: The liver, spleen, pancreas, adrenal and left kidney appear unremarkable. 18 millimeter cystic structure lower pole right kidney. Within this are 2 calcifications. Largest bull sures 9 millimeters. This probably represents calyceal diverticulum with calculi. There is no evidence of diverticulitis. Normal appendix. Small left inguinal hernia IMPRESSION: Probable right caliceal diverticulum containing calculi No acute abnormality displayed
--- NOTE | 2021-11-15 20:03 | ER ---
Nurse's Notes [facility] Name: Chandana Le Age: 50 yrs Sex: Male : 1970 Arrival Date: 11/15/2021 Time: 16:09 Bed 23 Private MD: Diagnosis: Low back pain;Sciatica, unspecified side;Other intervertebral disc disorders, lumbar region-Left posterolateral L5-S1 Presentation: 11/15 16:25 Chief complaint: Patient states: Back pain, radiates around to groin since yesterday, jl7 also reports "Not urinating right. It's just not right.". Coronavirus screen: At this time, the client does not indicate any symptoms associated with coronavirus-19. Ebola Screen: No symptoms or risks identified at this time. Initial Sepsis Screen: Does the patient meet any 2 criteria? No. Patient's initial sepsis screen is negative. Does the patient have a suspected source of infection? No. Patient's initial sepsis screen is negative. Risk Assessment: Do you want to hurt yourself or someone else? Patient reports no desire to harm self or others. Onset of symptoms was November 14, 2021. 16:25 Method Of Arrival: Wheelchair [facility] 16:25 Acuity: GLEN 3 jl7 Triage Assessment: 16:28 General: Appears in no apparent distress. uncomfortable, Behavior is cooperative, jl7 appropriate for age, anxious. Pain: Complains of pain in back Pain currently is 10 out of 10 on a pain scale. Musculoskeletal: pt reports inability to walk without significant pain. Historical: - Allergies: 16:28 PENICILLINS; jl7 - Home Meds: 16:28 Phenytoin Oral [Active]; lisinopril Oral [Active]; jl7 - PMHx: 16:28 Depression; High Cholesterol; Hypertension; Seizures; jl7 - Immunization history:: Client reports having NOT received the Covid vaccine. - Social history:: Smoking status: Patient denies any tobacco usage or history of. Screenin:32 Abuse screen: Denies threats or abuse. Denies injuries from another. Nutritional ab2 screening: No deficits noted. Tuberculosis screening: No symptoms or risk factors identified. Fall Risk None identified. Assessment: 17:30 General: Appears in no apparent distress. uncomfortable, Behavior is calm, cooperative, ab2 appropriate for age. Pain: Complains of pain in back Pain does not radiate. Pain currently is 10 out of 10 on a pain scale. Quality of pain is described as burning, sharp. Neuro: No deficits noted. Level of Consciousness is awake, alert, obeys commands, Oriented to person, place, time, situation, Appropriate for age [employer] Work[employer] are equal bilaterally Moves all extremities. Gait is steady, Speech is normal, Cardiovascular: No deficits noted. Denies chest pain, shortness of breath, Heart tones S1 S2 present Patient's skin is warm and dry. Respiratory: No deficits noted. Airway is patent Breath sounds are clear bilaterally. Denies cough, shortness of breath. GI: No deficits noted. No signs and/or symptoms were reported involving the gastrointestinal system. Abdomen is round non-distended. : Reports burning with urination, pain flank(s), in lower back. EENT: No deficits noted. No signs and/or symptoms were reported regarding the EENT system. Derm: No deficits noted. No signs and/or symptoms reported regarding the dermatologic system. Skin is intact, is healthy with good turgor. Musculoskeletal: No deficits noted. No signs and/or symptoms reported regarding the musculoskeletal system. Vital Signs: 16:25 BP 131 / 94; Pulse 79; Resp 17; Temp 97.9; Pulse Ox 99% ; Weight 92.99 kg; Height 5 ft. jl7 7 in. (170.18 cm); Pain 10/10; 17:32 BP 151 / 88; Pulse 83; Resp 16; Pulse Ox 99% on R/A; ab2 18:49 BP 143 / 92; Pulse 74; Resp 16; Pulse Ox 98% on R/A; ab2 19:46 BP 127 / 84; Pulse 80; Resp 16 S; Pulse Ox 97% on R/A; ab2 20:35 BP 121 / 77; Pulse 76; Resp 16; Pulse Ox 98% ; ab2 16:25 Body Mass Index 32.11 (92.99 kg, 170.18 cm) jl7 ED Course: 16:09 Patient arrived in ED. ds1 16:28 Triage completed. jl7 16:28 Arm band placed on right wrist. jl7 16:30 Alexis Morton MD is Attending Physician. kdr 16:41 Torey Denis is Primary Nurse. ab2 17:32 Patient has correct armband on for positive identification. Bed in low position. Call ab2 light in reach. Side rails up X2. 17:32 No provider procedures requiring assistance completed. Inserted saline lock: 20 gauge ab2 in right antecubital area, using aseptic technique. Blood collected. 18:09 CT Abd/Pelvis - IV Contrast Only In Process Unspecified. EDLA 19:28 Attending Physician role handed off by Alexis Morton MD cha 19:28 Marquez Bergeron MD is Attending Physician. [facility] 20:02 Samy Paul MD is Referral Physician. [facility] 20:57 IV discontinued, intact, bleeding controlled, No redness/swelling at site. Pressure ab2 dressing applied. Administered Medications: 17:59 Drug: morphine 4 mg Route: IVP; Site: right antecubital; ab2 19:46 Follow up: Response: No adverse reaction ab2 17:59 Drug: Zofran (Ondansetron) 4 mg Route: IVP; Site: right antecubital; ab2 19:46 Follow up: Response: No adverse reaction ab2 17:59 Drug: NS 0.9% 1000 ml Route: IV; Rate: 1 bolus; Site: right antecubital; ab2 19:50 Drug: morphine 4 mg Route: IVP; Site: right antecubital; ab2 20:36 Follow up: Response: No adverse reaction ab2 20:15 Drug: Valium (diazepam) 5 mg Route: PO; ab2 20:36 Follow up: Response: No adverse reaction ab2 20:15 Drug: Decadron - Dexamethasone 10 mg Route: IVP; Site: right antecubital; ab2 20:36 Follow up: Response: No adverse reaction ab2 20:15 Drug: Ketorolac 30 mg Route: IVP; Site: right antecubital; ab2 20:36 Follow up: Response: No adverse reaction ab2 Outcome: 20:02 Discharge ordered by . [facility] 20:57 Discharged to home ambulatory, with family. ab2 20:57 Condition: good 20:57 Discharge instructions given to patient, family, Instructed on discharge instructions, follow up and referral plans. medication usage, Demonstrated understanding of instructions, follow-up care, medications, Prescriptions given X 4. 20:57 Patient left the ED. ab2 Signatures: Dispatcher [employer] EDLA Rubio, MarquezMD MD rodri neville Kevin, MD MD kdr Sanford, Danuta ds1 Raysa White, TOSHIA RN jl7 Torey Denis
--- NOTE | 2021-11-15 20:04 | EDPHYS ---
Physician Documentation [facility] Name: Chandana Le Age: 50 yrs Sex: Male : 1970 Arrival Date: 11/15/2021 Time: 16:09 Bed 23 Private MD: ED Physician Marquez Bergeron HPI: 11/15 18:38 This 50 yrs old Male presents to ER via Wheelchair with complaints of Back Pain, kdr Urinary Problem. 19:15 The patient presents with pain that is acute, with no known mechanism of injury. The kdr symptoms are located in the low back. Onset: The symptoms/episode began/occurred gradually, 2 day(s) ago. Pain radiates probably around his right low abdomen from his back. Associated signs and symptoms: Pertinent positives: nausea, Pertinent negatives: fever, incontinence, numbness, tingling, urinary retention, vomiting, weakness. The problem was sustained from unknown cause. Modifying factors: The patient symptoms are alleviated by nothing, the patient symptoms are aggravated by any movement, Sitting up. Severity of symptoms: At their worst the symptoms were mild, in the emergency department the symptoms are unchanged. The patient has not experienced similar symptoms in the past. The patient has not recently seen a physician. Historical: - Allergies: 16:28 PENICILLINS; jl7 - Home Meds: 16:28 Phenytoin Oral [Active]; lisinopril Oral [Active]; jl7 - PMHx: 16:28 Depression; High Cholesterol; Hypertension; Seizures; jl7 - Immunization history:: Client reports having NOT received the Covid vaccine. - Social history:: Smoking status: Patient denies any tobacco usage or history of. ROS: 19:19 Constitutional: Negative for fever, chills, and weight loss, Eyes: Negative for injury, kdr pain, redness, and discharge, ENT: Negative for injury, pain, and discharge, Neck: Negative for injury, pain, and swelling, Cardiovascular: Negative for chest pain, palpitations, and edema, Respiratory: Negative for shortness of breath, cough, wheezing, and pleuritic chest pain, MS/Extremity: Negative for injury and deformity, Skin: Negative for injury, rash, and discoloration, Neuro: Negative for headache, weakness, numbness, tingling, and seizure activity. Psych: Negative for depression, anxiety, suicide ideation, homicidal ideation, and hallucinations, Allergy/Immunology: Negative for hives, rash, and allergies, Endocrine: Negative for neck swelling, polydipsia, polyuria, polyphagia, and marked weight changes, Hematologic/Lymphatic: Negative for swollen nodes, abnormal bleeding, and unusual bruising. 19:19 Abdomen/GI: Positive for abdominal pain, nausea, of the suprapubic area, right lower quadrant and left lower quadrant, Negative for vomiting, diarrhea, constipation, abdominal distension, anorexia, dysphagia, hematemesis, black/tarry stool, rectal pain, rectal bleeding. Exam: 19:19 Constitutional: This is a well developed, well nourished patient who is awake, alert, kdr and in no acute distress. Head/Face: Normocephalic, atraumatic. Eyes: Pupils equal round and reactive to light, extra-ocular motions intact. Lids and lashes normal. Conjunctiva and sclera are non-icteric and not injected. Cornea within normal limits. Periorbital areas with no swelling, redness, or edema. Neck: Trachea midline, no thyromegaly or masses palpated, and no cervical lymphadenopathy. Supple, full range of motion without nuchal rigidity, or vertebral point tenderness. No Meningismus. Chest/axilla: Normal chest wall appearance and motion. Nontender with no deformity. No lesions are appreciated. Cardiovascular: Regular rate and rhythm with a normal S1 and S2. No gallops, murmurs, or rubs. Normal PMI, no JVD. No pulse deficits. Respiratory: Lungs have equal breath sounds bilaterally, clear to auscultation and percussion. No rales, rhonchi or wheezes noted. No increased work of breathing, no retractions or nasal flaring. Abdomen/GI: Soft, non-tender, with normal bowel sounds. No distension or tympany. No guarding or rebound. No evidence of tenderness throughout. Back: No spinal tenderness. No costovertebral tenderness. Full range of motion. Skin: Warm, dry with normal turgor. Normal color with no rashes, no lesions, and no evidence of cellulitis. MS/ Extremity: Pulses equal, no cyanosis. Neurovascular intact. Full, normal range of motion. Neuro: Awake and alert, GCS 15, oriented to person, place, time, and situation. Cranial nerves II-XII grossly intact. Motor strength 5/5 in all extremities. Sensory grossly intact. Cerebellar exam normal. Normal gait. Psych: Awake, alert, with orientation to person, place and time. Behavior, mood, and affect are within normal limits. Vital Signs: 16:25 BP 131 / 94; Pulse 79; Resp 17; Temp 97.9; Pulse Ox 99% ; Weight 92.99 kg; Height 5 ft. jl7 7 in. (170.18 cm); Pain 10/10; 17:32 BP 151 / 88; Pulse 83; Resp 16; Pulse Ox 99% on R/A; ab2 18:49 BP 143 / 92; Pulse 74; Resp 16; Pulse Ox 98% on R/A; ab2 19:46 BP 127 / 84; Pulse 80; Resp 16 S; Pulse Ox 97% on R/A; ab2 20:35 BP 121 / 77; Pulse 76; Resp 16; Pulse Ox 98% ; ab2 16:25 Body Mass Index 32.11 (92.99 kg, 170.18 cm) jl7 MDM: 19:28 Patient medically screened. rodri 19:56 Differential diagnosis: chronic back pain, Osteoarthritis Pyelonephritis spinal injury, rodri sprain, Ureterolithiasis vertebral fracture. Data reviewed: vital signs, nurses notes, lab test result(s), radiologic studies, CT scan. Data interpreted: equipment monitor phototypesetting: rate is 80 beats/min, rhythm is regular, Pulse oximetry: is not applicable for this patient encounter. Counseling: I had a detailed discussion with the patient and/or guardian regarding: the historical points, exam findings, and any diagnostic results supporting the discharge/admit diagnosis, lab results, radiology results. 11/15 16:40 Order name: CBC with Diff; Complete Time: 17:48 kdr 11/15 16:40 Order name: Chem 7; Complete Time: 17:48 kdr 11/15 17:29 Order name: Urine Dipstick-Ancillary; Complete Time: 17:48 EDMS 11/15 17:46 Order name: CT Abd/Pelvis - IV Contrast Only kdr 11/15 16:40 Order name: Urine Dipstick-Ancillary (obtain specimen); Complete Time: 17:28 kdr 11/15 19:19 Order name: Bladder Scanner: Post void residual; Complete Time: 20:03 kdr Administered Medications: 17:59 Drug: morphine 4 mg Route: IVP; Site: right antecubital; ab2 19:46 Follow up: Response: No adverse reaction ab2 17:59 Drug: Zofran (Ondansetron) 4 mg Route: IVP; Site: right antecubital; ab2 19:46 Follow up: Response: No adverse reaction ab2 17:59 Drug: NS 0.9% 1000 ml Route: IV; Rate: 1 bolus; Site: right antecubital; ab2 19:50 Drug: morphine 4 mg Route: IVP; Site: right antecubital; ab2 20:36 Follow up: Response: No adverse reaction ab2 20:15 Drug: Valium (diazepam) 5 mg Route: PO; ab2 20:36 Follow up: Response: No adverse reaction ab2 20:15 Drug: Decadron - Dexamethasone 10 mg Route: IVP; Site: right antecubital; ab2 20:36 Follow up: Response: No adverse reaction ab2 20:15 Drug: Ketorolac 30 mg Route: IVP; Site: right antecubital; ab2 20:36 Follow up: Response: No adverse reaction ab2 Disposition Summary: 11/15/21 20:02 Discharge Ordered Location: Home rodri Problem: new rodri Symptoms: have improved rodri Condition: Stable rodri Diagnosis - Low back pain rodri - Sciatica, unspecified side rodri - Other intervertebral disc disorders, lumbar region - Left posterolateral L5-S1 rodri Followup: rodri - With: Private Physician - When: 2 - 3 days - Reason: Recheck today's complaints, Continuance of care, Re-evaluation by your physician Followup: rodri - With: Samy Paul MD - When: 2 - 3 days - Reason: Recheck today's complaints, Continuance of care, Re-evaluation by your physician Discharge Instructions: - Discharge Summary Sheet rodri - Acute Back Pain, Adult rodri - Musculoskeletal Pain rodri - Sciatica rodri Forms: - Medication Reconciliation Form rodri - Thank You Letter rodri - Antibiotic Education rodri - Prescription Opioid Use rodri Prescriptions: - dexamethasone 2 mg Oral tablet - take 1 tablet by ORAL route 3 times per day; 15 tablet; Refills: 0, Product rodri Selection Permitted - Ibuprofen 600 mg Oral Tablet - take 1 tablet by ORAL route every 6 hours As needed take with food; 30 tablet; rodri Refills: 0, Product Selection Permitted - Valium 5 mg Oral Tablet - take 1 tablet by ORAL route every 8 hours As needed; 20 tablet; Refills: 0, [facility] Product Selection Permitted - Tylenol-Codeine #3 300 mg-30 mg Oral - take 2 tablet by ORAL route every 6 hours; 20 tablet; Refills: 0, Product [facility] Selection Permitted Signatures: Dispatcher [employer] Marquez Chi MD MD cha Rittger, Kevin, MD MD kdr Leal, Jahala, RN RN jl7 Torey Denis
[2021-11-15] MEDS ORDERED: DIAZEPAM 5 MG TABLET ONE (20:10)
[2021-11-15] MEDS ORDERED: dexAMETHasone 10 MG/ML VIAL ONE (20:10)
[2021-11-15] MEDS ORDERED: KETOROLAC 30 MG/ML INJ ONE (20:11)
[2021-11-15 21:05] VITALS: TEMP 97.9
[2021-11-15 21:09] VITALS: BP 121/77; O2SAT 98
== END 2021-11-15 20:57 | disposition home or self-care (01) ==
LOC: ER 16:04
DX: M54.30 Sciatica, unspecified side (principal); M51.87 Other intervertebral disc disorders, lumbosacral region; I10 Essential (primary) hypertension; Z88.0 Allergy status to penicillin
CPT/HCPCS: 36415; 74177; 80048; 81003; 85025; 96374; 96375; 99284; J1100; J2405; J7030; Q9967

== ENCOUNTER 2021-11-27 00:59 | Emergency (ER) | payer SELFPAY ==
[2021-11-27 01:55] LABS: Absolute Lymphocytes (CBC) 1.7 K/uL (0.7-4.9); Hematocrit 41.4 % (39.6-49.0); Lymphocytes % 21.5 % (15.3-44.8); RBC Red Blood Cell Count 5.04 M/uL (4.33-5.43)
[2021-11-27] MEDS ORDERED: NA CHLORIDE 0.9% 500 ML ONE (02:01)
[2021-11-27 02:15] LABS: ALT/SGPT 36 U/L (12-78); AST/SGOT 26 U/L (15-37); Albumin 3.3 g/dL (3.4-5.0); Alkaline Phosphatase 72 U/L (45-117); BUN Blood Urea Nitrogen 15 mg/dL (7-18); Bicarbonate 25 mmol/L (21-32); Bilirubin Direct < 0.1 mg/dL (0-0.2); Bilirubin Total 0.1 mg/dL (0.2-1.0); Glucose Level 134 mg/dL (74-106); Phenytoin (Dilantin) Level 2.1 ug/mL (10.0-20.0); Potassium 3.8 mmol/L (3.5-5.1); Protein, Total 6.9 g/dL (6.4-8.2); Sodium Level 138 mmol/L (136-145)
[2021-11-27] MEDS ORDERED: FOSPHENYTOIN PE 500 MG/10 ML VIAL ONE (02:49)
[2021-11-27] MEDS ORDERED: NA CHLORIDE 0.9% 50 ML ONE ×2 (02:49→02:55)
--- NOTE | 2021-11-27 04:07 | EDPHYS ---
Physician Documentation [facility] Name: Chandnaa Le Age: 50 yrs Sex: Male : 1970 Arrival Date: 11/27/2021 Time: 01:15 Bed 15 Private MD: ED Physician Alexis Morton HPI: 11/27 02:36 This 50 yrs old Male presents to ER via EMS with complaints of Seizure. kdr 02:36 The patient presents after having a single isolated seizure, that lasted 3 minute(s), kdr the episode(s) was witnessed, by family, . Character of seizure(s): Loss of consciousness: the patient experienced loss of consciousness, Motor activity: generalized, shaking all over, Incontinence: none, Apnea: the patient did not experience apnea, Circulation: the patient did not experience evidence of pulse disturbance, Eye movements: are unknown. Seizure onset: just prior to arrival. Context: the seizure(s) was witnessed, occurred at home, occurred while the patient was asleep, Patient had fall asleep on the couch. Seizure Hx: Cause: unknown. Associated injury: Other: abrasion, pain, Tongue injury. Current symptoms: confusion, headache, that is mild, States his typical post ictal headache. The patient has experienced similar episodes in the past, a few times, The patient has had a long history of seizures but has not had a seizure in about the last 10 years according to the patient and his .. The patient has not recently seen a physician. Historical: - Allergies: 01:27 PENICILLINS; sv1 - Home Meds: 01:27 depression medication [Active]; lisinopril Oral [Active]; Phenytoin Oral [Active]; sv1 - PMHx: 01:27 Depression; High Cholesterol; Hypertension; Seizures; sv1 - Immunization history:: Adult Immunizations up to date, Last tetanus immunization: up to date Flu vaccine is up to date. - Social history:: Smoking status: unknown. ROS: 02:43 Constitutional: Negative for fever, chills, and weight loss, Eyes: Negative for injury, kdr pain, redness, and discharge, ENT: Negative for injury, pain, and discharge, Neck: Negative for injury, pain, and swelling, Cardiovascular: Negative for chest pain, palpitations, and edema, Respiratory: Negative for shortness of breath, cough, wheezing, and pleuritic chest pain, Abdomen/GI: Negative for abdominal pain, nausea, vomiting, diarrhea, and constipation, Back: Negative for injury and pain, : Negative for injury, bleeding, discharge, and swelling, MS/Extremity: Negative for injury and deformity, Skin: Negative for injury, rash, and discoloration, Psych: Negative for depression, anxiety, suicide ideation, homicidal ideation, and hallucinations, Allergy/Immunology: Negative for hives, rash, and allergies, Endocrine: Negative for neck swelling, polydipsia, polyuria, polyphagia, and marked weight changes, Hematologic/Lymphatic: Negative for swollen nodes, abnormal bleeding, and unusual bruising. 02:43 Neuro: Positive for headache, seizure activity, Negative for altered mental status, dizziness, gait disturbance, hearing loss, loss of consciousness, numbness, speech changes, syncope, near syncope, tingling, tinnitus, tremor, visual changes, weakness. Exam: 02:43 Constitutional: This is a well developed, well nourished patient who is awake, alert, kdr and in no acute distress. Head/Face: Normocephalic, atraumatic. Eyes: Pupils equal round and reactive to light, extra-ocular motions intact. Lids and lashes normal. Conjunctiva and sclera are non-icteric and not injected. Cornea within normal limits. Periorbital areas with no swelling, redness, or edema. Neck: Trachea midline, no thyromegaly or masses palpated, and no cervical lymphadenopathy. Supple, full range of motion without nuchal rigidity, or vertebral point tenderness. No Meningismus. Chest/axilla: Normal chest wall appearance and motion. Nontender with no deformity. No lesions are appreciated. Cardiovascular: Regular rate and rhythm with a normal S1 and S2. No gallops, murmurs, or rubs. Normal PMI, no JVD. No pulse deficits. Respiratory: Lungs have equal breath sounds bilaterally, clear to auscultation and percussion. No rales, rhonchi or wheezes noted. No increased work of breathing, no retractions or nasal flaring. Abdomen/GI: Soft, non-tender, with normal bowel sounds. No distension or tympany. No guarding or rebound. No evidence of tenderness throughout. Back: No spinal tenderness. No costovertebral tenderness. Full range of motion. Skin: Warm, dry with normal turgor. Normal color with no rashes, no lesions, and no evidence of cellulitis. MS/ Extremity: Pulses equal, no cyanosis. Neurovascular intact. Full, normal range of motion. Psych: Awake, alert, with orientation to person, place and time. Behavior, mood, and affect are within normal limits. 02:43 Neuro: Orientation: is normal, Mentation: slow to respond, Memory: appropriate for stated age. Vital Signs: 01:24 BP 122 / 80 RA Supine (auto/reg); Pulse 88 MON; Resp 17 S; Temp 98.8; Pulse Ox 95% on sv1 R/A; Pain 0/10; 01:30 BP 122 / 80 RA Supine (auto/reg); Pulse 88 MON; Resp 17 S; Temp 98.8; Pulse Ox 95% on sv1 R/A; Pain 0/10; 03:32 BP 116 / 69 LA Supine (auto/lg); Pulse 75 MON; Resp 12; Pulse Ox 97% on R/A; sv1 04:21 BP 106 / 76 LA Supine (auto/lg); Pulse 76 MON; Resp 14 S; Pulse Ox 96% on R/A; Pain sv1 0/10; 03:32 Normal Sinus Rhythm sv1 MDM: 04:06 Patient medically screened. kdr 04:08 Data reviewed: vital signs, nurses notes, lab test result(s), radiologic studies. kdr Counseling: I had a detailed discussion with the patient and/or guardian regarding: the historical points, exam findings, and any diagnostic results supporting the discharge/admit diagnosis, lab results, radiology results, the need for outpatient follow up. 11/27 01:30 Order name: Basic Metabolic Panel; Complete Time: 02: kdr 11/27 01:30 Order name: CBC with Diff; Complete Time: 02: kdr 11/27 01:30 Order name: Hepatic Function; Complete Time: 02: kdr 11/27 01:30 Order name: CT Head Brain wo Cont kdr 11/27 01:30 Order name: Phenytoin (dilantin); Complete Time: 02:21 kdr 11/27 01:30 Order name: IV Saline Lock; Complete Time: 01:45 kdr 11/27 01:30 Order name: Labs collected and sent; Complete Time: :45 kdr Administered Medications: 02:10 Drug: NS 0.9% 500 ml Route: IV; Rate: bolus; Site: right forearm; sv1 03:01 Follow up: Response: No adverse reaction sv1 03:43 Follow up: IV Status: Completed infusion sv1 03:00 Drug: CEREbyx (fosphenytoin) 1 grams Route: IVPB; Site: right antecubital; sv1 03:42 Follow up: Response: No adverse reaction; IV Status: Completed infusion sv1 04:00 Drug: Tylenol 1000 mg Route: PO; sv1 04:17 Follow up: Response: No adverse reaction; Pain is decreased sv1 Disposition Summary: 11/27/21 04:06 Discharge Ordered Location: Home kdr Problem: new kdr Symptoms: have improved kdr Condition: Stable kdr Diagnosis - Other seizures - Breakthrough kdr Followup: kdr - With: Private Physician - When: 2 - 3 days - Reason: If symptoms return, Further diagnostic work-up, Recheck today's complaints, Continuance of care, Re-evaluation by your physician Discharge Instructions: - Discharge Summary Sheet kdr - Seizure, Adult, [id number] kdr Forms: - Medication Reconciliation Form kdr - Thank You Letter kdr Signatures: Dispatcher [employer] Alexis Arceo MD MD kdr Danis Delgadillo RN RN sv1
--- NOTE | 2021-11-27 04:07 | ER ---
Nurse's Notes [facility] Name: Chandana Le Age: 50 yrs Sex: Male : 1970 Arrival Date: 11/27/2021 Time: 01:15 Bed 15 Private MD: Diagnosis: Other seizures-Breakthrough Presentation: 11/27 01:24 Chief complaint: Patient states: seizure. Coronavirus screen: Client denies travel out [facility] of the [place] in the last 14 days. Ebola Screen: Patient denies exposure to infectious person. Patient denies travel to an Ebola-affected area in the 21 days before illness onset. No symptoms or risks identified at this time. Initial Sepsis Screen: Does the patient have a suspected source of infection? No. Patient's initial sepsis screen is negative. Initial Sepsis Screen: Does the patient meet any 2 criteria? No. Patient's initial sepsis screen is negative. Risk Assessment: Do you want to hurt yourself or someone else? Patient reports no desire to harm self or others. Onset of symptoms was November 27, 2021. 01:24 Method Of Arrival: EMS: [facility] sv1 01:24 Acuity: GLEN 3 sv1 Triage Assessment: :27 General: Appears uncomfortable, well groomed, well developed, Behavior is calm, sv1 cooperative. Pain: Denies pain. Historical: - Allergies: : PENICILLINS; sv1 - Home Meds: :27 depression medication [Active]; lisinopril Oral [Active]; Phenytoin Oral [Active]; sv1 - PMHx: :27 Depression; High Cholesterol; Hypertension; Seizures; sv1 - Immunization history:: Adult Immunizations up to date, Last tetanus immunization: up to date Flu vaccine is up to date. - Social history:: Smoking status: unknown. Screenin:30 Abuse screen: Denies threats or abuse. Nutritional screening: No deficits noted. sv1 Tuberculosis screening: No symptoms or risk factors identified. Fall Risk None identified. Vital Signs: 01:24 BP 122 / 80 RA Supine (auto/reg); Pulse 88 MON; Resp 17 S; Temp 98.8; Pulse Ox 95% on sv1 R/A; Pain 0/10; 01:30 BP 122 / 80 RA Supine (auto/reg); Pulse 88 MON; Resp 17 S; Temp 98.8; Pulse Ox 95% on sv1 R/A; Pain 0/10; 03:32 BP 116 / 69 LA Supine (auto/lg); Pulse 75 MON; Resp 12; Pulse Ox 97% on R/A; sv1 04:21 BP 106 / 76 LA Supine (auto/lg); Pulse 76 MON; Resp 14 S; Pulse Ox 96% on R/A; Pain sv1 0/10; 03:32 Normal Sinus Rhythm sv1 ED Course: 01:15 Patient arrived in ED. sm5 01:16 Alexis Morton MD is Attending Physician. kdr 01:23 Danis Delgadillo, TOSHIA is Primary Nurse. sv1 01:26 Triage completed. sv1 01:27 Arm band placed on left wrist. sv1 01:30 Patient has correct armband on for positive identification. Call light in reach. Side sv1 rails up X2. Adult w/ patient. Child being held by parent. 01:30 No provider procedures requiring assistance completed. sv1 01:45 Inserted saline lock: 20 gauge in right forearm, using aseptic technique. Blood ds4 collected. 02:11 Phenytoin (dilantin) Sent. sv1 02:11 Basic Metabolic Panel Sent. sv1 02:11 Hepatic Function Sent. sv1 02:24 CT Head Brain wo Cont In Process Unspecified. EDMS 04:15 Patient did not have IV access during this emergency room visit. Patient admitted, IV ds4 remains in place. Patient transferred, IV remains in place. IV discontinued, intact, bleeding controlled, No redness/swelling at site. Pressure dressing applied. 04:23 IV discontinued. sv1 Administered Medications: 02:10 Drug: NS 0.9% 500 ml Route: IV; Rate: bolus; Site: right forearm; sv1 03:01 Follow up: Response: No adverse reaction sv1 03:43 Follow up: IV Status: Completed infusion sv1 03:00 Drug: CEREbyx (fosphenytoin) 1 grams Route: IVPB; Site: right antecubital; sv1 03:42 Follow up: Response: No adverse reaction; IV Status: Completed infusion sv1 04:00 Drug: Tylenol 1000 mg Route: PO; sv1 04:17 Follow up: Response: No adverse reaction; Pain is decreased sv1 Outcome: 04:06 Discharge ordered by . kdr 04:21 Discharged to home ambulatory, with family. sv1 04:21 Condition: improved 04:21 Discharge instructions given to patient, family. 04:41 Patient left the ED. sv1 Signatures: Dispatcher [employer] EDMS Alexis Morton MD MD kdr Swanson, Donovan ds4 Elizabeth Ag RN RN sm5 Danis Delgadillo RN RN sv1
[2021-11-27] MEDS ORDERED: ACETAMINOPHEN 500 MG TAB ONE (04:17)
[2021-11-27 04:47] VITALS: TEMP 98.8
[2021-11-27 04:52] VITALS: BP 106/76; O2SAT 96
--- NOTE | 2021-11-27 16:49 | RAD REPORT ---
EXAM DESCRIPTION: CT - Head Brain Wo Cont - 11/27/2021 3:56 am CLINICAL HISTORY: 50 years, Male, SEIZURE COMPARISON: 11/24/2017 FINDINGS: Multiple transaxial tomograms of the brain were obtained from the base of the skull to the vertex without contrast. 2-D multiplanar reformats and the coronal and sagittal plane were performed and reviewed. This exam was performed according to our departmental dose-optimization protocol, which includes auto mated exposure control, adjustment of the mA and/or kV according to patient size and/or use of iterat marlene reconstruction technique. Brain parenchyma as well as the apple and white matter differentiation demonstrate to be unremarkable. There is mild prominence of the sulci and gyri. There is no midline shift and/or mass effect. There is no evidence for acute hemorrhage there are no focal areas of hypodensities. Lateral ventricles a nd cisterns displace normal appearance. No intra or extra axial fluid collections were seen. The ca lvarium is intact with no evidence for fracture. The visualized portions of the paranasal sinuses and orbits demonstrate to be clear. IMPRESSION: NO ACUTE INTRACRANIAL HEMORRHAGE. UNREMARKABLE CT SCAN OF THE HEAD WITHOUT CONTRAST. Electronically signed by: Landen Dolan MD 11/27/2021 2:29 AM TESTBOARD OPERATOR Due to temporary technical issues with the PACS/Fluency reporting system, reports are being signed by the in house radiologists without review as a courtesy to insure prompt reporting. The interpreting radiologist is fully responsible for the content of the report.
== END 2021-11-27 04:41 | disposition home or self-care (01) ==
LOC: ER 00:59
DX: G40.89 Other seizures (principal); I10 Essential (primary) hypertension; F32.A Depression, unspecified
CPT/HCPCS: 36415; 70450; 80048; 80076; 80185; 85025; 96361; 96365; 99284; J7040; Q2009

== ENCOUNTER 2022-08-03 17:04 | Emergency (ER) | payer BC ==
[2022-08-03 18:15] LABS: Absolute Lymphocytes (CBC) 1.8 K/uL (0.7-4.9); Hematocrit 40.7 % (39.6-49.0); Lymphocytes % 23.1 % (15.3-44.8); MCV 83.1 fL (80-100); MPV 6.9 fL (7.6-11.3)
[2022-08-03 18:19] LABS: Protime INR 1.17
[2022-08-03 18:30] LABS: Potassium 3.8 mmol/L (3.5-5.1); Troponin High Sensitivity 5.3 pg/mL (<58.9)
--- NOTE | 2022-08-03 18:48 | RAD REPORT ---
EXAM DESCRIPTION: CT - Head Brain Wo Cont - 08/03/2022 6:18 pm CLINICAL HISTORY: headache COMPARISON: <Comparisons>CT head July 15 TECHNIQUE: Axial 5 mm thick images of the head were obtained without IV contrast. All CT scans are performed using dose optimization technique as appropriate and may include automated exposure control or mA/KV adjustment according to patient size. FINDINGS: No intracranial hemorrhage, mass, edema or shift of mid-line structures. No acute infarcti on changes seen. No abnormal extra-axial fluid collections. Ventricles are normal. Mastoid air cells and visualized portions of the paranasal sinuses are clear. No acute bony findings. No identifiable change from short interval July 15 examination. IMPRESSION: Negative non-contrast CT head examination.
[2022-08-03] MEDS ORDERED: ONDANSETRON 4 MG/2 ML VIAL ONE (20:12)
[2022-08-03] MEDS ORDERED: MORPHINE 4 MG/ML SYR ONE (20:12)
--- NOTE | 2022-08-03 20:51 | RAD REPORT ---
EXAM DESCRIPTION: CT - Neck Angio - 08/03/2022 8:22 pm CLINICAL HISTORY: Left sided neck pain TECHNIQUE: During dynamic enhancement using nonionic IV contrast, axial 2 mm thick images of the nec k were obtained. Sagittal and axial reconstruction images were generated using MIP technique and revi ewed. All CT scans are performed using dose optimization technique as appropriate and may include automated exposure control or mA/KV adjustment according to patient size. COMPARISON: CT head same date, CT angio head same date FINDINGS: No aneurysm or vascular malformation identified. No carotid or vertebral dissection. No aortic arch or great vessel origin abnormality seen. Vertebral artery origins unremarkable as well . No stenosis, vasculitis or other significant carotid artery finding. No focal abnormality of either vertebral artery. Basilar artery is normal. IMPRESSION: Negative CT angio neck examination.
--- NOTE | 2022-08-03 20:52 | RAD REPORT ---
EXAM DESCRIPTION: CT - Head angio - 08/03/2022 8:22 pm CLINICAL HISTORY: headache TECHNIQUE: During dynamic enhancement using nonionic IV contrast, axial 1 millimeter thick images of the head were obtained. Sagittal and axial reconstruction images were generated using MIP technique and reviewed. All CT scans are performed using dose optimization technique as appropriate and may include automated exposure control or mA/KV adjustment according to patient size. COMPARISON: CT head same date FINDINGS: No aneurysm or vascular malformation identified. Major venous sinuses are patent. No stenosis, named branch occlusion, vasculitis or other significant vascular finding identifiable. IMPRESSION: Negative CT angio head examination.
--- NOTE | 2022-08-03 20:58 | EDPHYS ---
Physician Documentation [facility] Name: Chandana Le Age: 51 yrs Sex: Male : 1970 Arrival Date: 08/03/2022 Time: 17:08 Bed 13 Private MD: ED Physician Abdon Atkins HPI: 08/03 19:23 This 51 yrs old Male presents to ER via Ambulatory with complaints of Numbness Of Arm, ms3 Numbness Of Hand. 19:23 The patient or guardian complains of numbness. The complaints affect the left arm. ms3 Context:. Onset: The symptoms/episode began/occurred 1 week(s) ago. Treatment prior to arrival includes: no previous treatment. Modifying factors: The symptoms are alleviated by nothing. the symptoms are aggravated by nothing. Associated signs and symptoms: Pertinent positives: Left neck pain. Severity of symptoms: At their worst the symptoms were severe, a " 10" out of "10", in the emergency department the symptoms are unchanged. 19:23 51 yo male with PMH of Depression, HLD, HTN, Seizure presents for L sided neck pain and ms3 left arm numbness that has been intermittent for 1 week. Patient states the symptoms have become worse over the last 2 days. Patient states he has also had 10/10 Left sided neck pain during this time. Historical: - Allergies: 17:25 PENICILLINS; ap3 - PMHx: 17:25 Depression; High Cholesterol; Hypertension; Seizures; ap3 - Immunization history:: Client reports having NOT received the Covid vaccine. - Social history:: Smoking status: Patient reports use of chewing tobacco. ROS: 19:23 Constitutional: Negative for fever, and chills. Cardiovascular: Negative for chest ms3 pain, and palpitations. Respiratory: Negative for shortness of breath, cough, wheezing, and pleuritic chest pain, Abdomen/GI: Negative for abdominal pain, nausea, vomiting, diarrhea, and constipation, MS/Extremity: Negative for injury and deformity, Skin: Negative for injury, rash, and discoloration. 19:23 Neuro: Positive for Intermittent left arm numbess. Exam: 19:23 Constitutional: This is a well developed, well nourished patient who is awake, alert, ms3 and in no acute distress. Head/Face: Normocephalic, atraumatic. Neck: Trachea midline, no cervical lymphadenopathy. Supple, full range of motion without nuchal rigidity, or vertebral point tenderness. No Meningismus. Chest/axilla: Normal chest wall appearance and motion. Nontender with no deformity. Cardiovascular: Regular rate and rhythm with a normal S1 and S2. No gallops, murmurs, or rubs. Normal PMI, no JVD. No pulse deficits. Respiratory: Lungs have equal breath sounds bilaterally, clear to auscultation and percussion. No rales, rhonchi or wheezes noted. No increased work of breathing, no retractions or nasal flaring. Abdomen/GI: Soft, non-tender, with normal bowel sounds. No distension or tympany. No guarding or rebound. No evidence of tenderness throughout. Skin: Warm, dry with normal turgor. Normal color with no rashes, no lesions, and no evidence of cellulitis. MS/ Extremity: Pulses equal, no cyanosis. Neurovascular intact. Full, normal range of motion. Psych: Awake, alert, with orientation to person, place and time. Behavior, mood, and affect are within normal limits. 21:07 ECG was reviewed by the Attending Physician. ms3 Vital Signs: 17:23 BP 135 / 95; Pulse 85; Resp 17; Temp 98.3; Pulse Ox 97% ; Weight 91.63 kg; Height 5 ft. ap3 7 in. (170.18 cm); 18:27 BP 152 / 86; Pulse 74; Pulse Ox 98% on R/A; ap3 20:00 BP 134 / 90; Pulse 70; Resp 16; Pulse Ox 97% on R/A; jb4 21:00 BP 140 / 94; Pulse 70; Resp 16; Pulse Ox 96% on R/A; jb4 17:23 Body Mass Index 31.64 (91.63 kg, 170.18 cm) ap3 NIH Stroke Scale Scores: 19:23 NIHSS Score: 0 ms3 MDM: 17:48 Patient medically screened. ms3 19:23 Data reviewed: vital signs, nurses notes. Transition of care: After a detail discussion ms3 of the patient's case, care is transferred to Abdon Atkins MD. 20:56 Differential diagnosis: radiculopathy, paresthesias, disc problem, vertebral artery rn dissection. Counseling: I had a detailed discussion with the patient and/or guardian regarding: the historical points, exam findings, and any diagnostic results supporting the discharge/admit diagnosis, lab results, radiology results, the need for outpatient follow up, to return to the emergency department if symptoms worsen or persist or if there are any questions or concerns that arise at home. Response to treatment: the patient's symptoms have mildly improved after treatment, and as a result, I will discharge patient. Special discussion: I discussed with the patient/guardian in detail that at this point there is no indication for admission to the hospital. It is understood, however, that if the symptoms persist or worsen the patient needs to return immediately for re-evaluation. Based on the history and exam findings, there is no indication for further emergent testing or inpatient evaluation. I discussed with the patient/guardian the need to see the neurologist for further evaluation of the symptoms. 20:56 ED course: Signed out to me by Dr. Cordero, pending CTA of neck, plan is to dc home if neg rn as radiculopathy, has had these symptoms before, but increased pain today so imaging ordered. . 08/03 17:46 Order name: Basic Metabolic Panel; Complete Time: 18:43 ms3 08/03 17:46 Order name: CBC with Diff; Complete Time: 18:43 ms3 08/03 17:46 Order name: High Sensitivity Troponin; Complete Time: 18:43 ms3 08/03 17:46 Order name: Protime (+inr); Complete Time: 18:43 ms3 08/03 17:46 Order name: Ptt, Activated; Complete Time: 18:43 ms3 08/03 17:46 Order name: CT Head Brain wo Cont; Complete Time: 18:59 ms3 08/03 17:46 Order name: EKG; Complete Time: 17:47 ms3 08/03 17:46 Order name: Accucheck; Complete Time: 19:10 ms3 08/03 17:46 Order name: Cardiac monitoring; Complete Time: 17:47 ms3 08/03 17:46 Order name: EKG - Nurse/Tech; Complete Time: 18:07 ms3 08/03 19:09 Order name: CT Neck Angio; Complete Time: 20:55 ms3 08/03 19:09 Order name: CT Head Angio; Complete Time: 20:55 ms3 08/03 17:46 Order name: IV Saline Lock; Complete Time: 18:07 ms3 08/03 17:46 Order name: Labs collected and sent; Complete Time: 18:07 ms3 08/03 17:46 Order name: NPO; Complete Time: 17:47 ms3 08/03 17:46 Order name: O2 Per Protocol; Complete Time: 17:47 ms3 08/03 17:46 Order name: O2 Sat Monitoring; Complete Time: 17:47 ms3 08/03 17:46 Order name: Stroke Swallow Screen; Complete Time: 18:07 ms3 EC:07 Rate is 78 beats/min. Rhythm is regular. QRS [place] is Normal. MS interval is normal. QRS ms3 interval is normal. Clinical impression: NSR w/ Non-specific ST/T Changes. Interpreted by me. Reviewed by me. Administered Medications: 20:36 Drug: morphine 4 mg Route: IVP; Infused Over: 4 mins; Site: right antecubital; jb4 20:37 Drug: Zofran (Ondansetron) 4 mg Route: IVP; Site: right antecubital; jb4 Disposition Summary: 08/03/22 20:57 Discharge Ordered Location: Home rn Problem: an ongoing problem rn Symptoms: have improved rn Condition: Stable rn Diagnosis - Radiculopathy, cervical region rn - Paresthesia of skin rn Followup: rn - With: Samy Paul MD - When: As needed - Reason: Recheck today's complaints, Re-evaluation by your physician Discharge Instructions: - Discharge Summary Sheet rn - Cervical Radiculopathy rn - Paresthesia rn Forms: - Medication Reconciliation Form rn - Thank You Letter rn - Antibiotic bakery pastry internship - Prescription Opioid Use rn Prescriptions: - Cyclobenzaprine 10 mg Oral Tablet - take 1 tablet by ORAL route every 8 hours As needed; 10 tablet; Refills: 0, rn Product Selection Permitted - Medrol (Frankie) 4 mg Oral Tablets, Dose Pack - take 1 tablet by ORAL route as directed - follow package instructions; 1 rn packet; Refills: 0, Product Selection Permitted NIH Stroke Scale - NIH Stroke Score Date: 08/03/2022 Time: 19:23 Total Score = 0 1a. Level of Consciousness (LOC) - 0(Alert) 1b. Level of Consciousness (LOC) (Month \\T\\ Age) - 0(Both) 1c. LOC Commands (Open \\T\\ Closes Eyes/Rivet [employer] Machine Operator) - 0(Both) 2. Best Gaze (Lateral Gaze Paresis) - 0(Normal) 3. Visual Field Loss - 0(No visual loss) 4. Facial Palsy - 0(Normal) 5a. Left Arm: Motor (10-second hold) - 0(No drift) 5b. Right Arm: Motor (10-second hold) - 0(No drift) 6a. Left Leg: Motor (5-second hold - always test supine) - 0(No drift) 6b. Right Leg: Motor (5-second hold - always test supine) - 0(No drift) 7. Limb Ataxia (finger/nose \\T\\ heel/ramirez - test with eyes open) - 0(Absent) 8. Sensory Loss (pinprick arms/legs/face) - 0(Normal) 9. Best Language: Aphasia (description/naming/reading) - 0(No aphasia) 10. Dysarthria (speech clarity - read or repeat words) - 0(Normal) 11. Extinction and Inattention (visual/tactile/auditory/spatial/personal) - 0(No abnormality) Initials: ms3 Signatures: Dispatcher [employer] EDAbdon Fuentes MD MD rn Bryson, James, RN RN jb4 Letha Mayorga RN RN ap3 Ryan Cordero DO DO ms3
--- NOTE | 2022-08-03 20:58 | ER ---
Nurse's Notes [facility] Name: Chandana Le Age: 51 yrs Sex: Male : 1970 Arrival Date: 08/03/2022 Time: 17:08 Bed 13 Private MD: Diagnosis: Radiculopathy, cervical region;Paresthesia of skin Presentation: 08/03 17:23 Chief complaint: Patient states: he has been having numbness that has been getting ap3 worse on his left side over the the last week. patient states that the last few days he has seen the most increase in numbness, with pains that shoot all up and down his left side. Coronavirus screen: At this time, the client does not indicate any symptoms associated with coronavirus-19. Ebola Screen: No symptoms or risks identified at this time. Initial Sepsis Screen: Does the patient meet any 2 criteria? No. Patient's initial sepsis screen is negative. Does the patient have a suspected source of infection? No. Patient's initial sepsis screen is negative. Risk Assessment: Do you want to hurt yourself or someone else? Patient reports no desire to harm self or others. Onset of symptoms is unknown. 17:23 Method Of Arrival: Ambulatory ap3 17:23 Acuity: GLEN 3 ap3 Triage Assessment: 17:27 General: Appears in no apparent distress. Behavior is calm, cooperative, appropriate ap3 for age. Pain: Complains of pain in chest, abdomen, left arm and left leg. Neuro: Level of Consciousness is awake, alert, obeys commands, Oriented to person, place, time, situation, Moves all extremities. Gait is steady, Speech is normal, Reports numbness in left arm and left leg. Cardiovascular: Patient's skin is warm and dry. Respiratory: Airway is patent Respiratory effort is even, unlabored, Respiratory pattern is regular, symmetrical. Historical: - Allergies: 17:25 PENICILLINS; ap3 - PMHx: 17:25 Depression; High Cholesterol; Hypertension; Seizures; ap3 - Immunization history:: Client reports having NOT received the Covid vaccine. - Social history:: Smoking status: Patient reports use of chewing tobacco. Screenin:26 Abuse screen: Denies threats or abuse. Nutritional screening: No deficits noted. ap3 Tuberculosis screening: No symptoms or risk factors identified. Fall Risk No fall in past 12 months (0 pts). Secondary diagnosis (15 points) reported numbness on left side. No IV (0 pts). Ambulatory Aid- None/Bed Rest/Nurse Assist (0 pts). Gait- Normal/Bed Rest/Wheelchair (0 pts) Mental Status- Oriented to own ability (0 pts). Total Higuera Fall Scale indicates No Risk (0-24 pts). Assessment: 19:00 Reassessment: See triage note, pt is currently resting in bed with eyes closed, jb4 respirations are even and unlabored with no s/s of pain or distress noted. at this time. 20:00 Reassessment: Patient appears in no apparent distress at this time. Patient and/or jb4 family updated on plan of care and expected duration. Pain level reassessed. Patient is alert, oriented x 3, equal unlabored respirations, skin warm/dry/pink. Pt reports pain to the left arm and numbness, reports pain is 10/10. provider notified, see [facility] for orders. 21:19 Reassessment: Patient appears in no apparent distress at this time. Patient and/or jb4 family updated on plan of care and expected duration. Pain level reassessed. Patient is alert, oriented x 3, equal unlabored respirations, skin warm/dry/pink. Vital Signs: 17:23 BP 135 / 95; Pulse 85; Resp 17; Temp 98.3; Pulse Ox 97% ; Weight 91.63 kg; Height 5 ft. ap3 7 in. (170.18 cm); 18:27 BP 152 / 86; Pulse 74; Pulse Ox 98% on R/A; ap3 20:00 BP 134 / 90; Pulse 70; Resp 16; Pulse Ox 97% on R/A; jb4 21:00 BP 140 / 94; Pulse 70; Resp 16; Pulse Ox 96% on R/A; jb4 17:23 Body Mass Index 31.64 (91.63 kg, 170.18 cm) ap3 NIH Stroke Scale Scores: 19:23 NIHSS Score: 0 ms3 ED Course: 15:50 Inserted saline lock: 20 gauge in right forearm, using aseptic technique. Blood ap3 collected. 17:08 Patient arrived in ED. dt4 17:23 Letha Mayorga, RN is Primary Nurse. ap3 17:25 Triage completed. ap3 17:25 Ryan Cordero DO is Attending Physician. ms3 17:27 Arm band placed on right wrist. ap3 17:27 Patient has correct armband on for positive identification. Bed in low position. Call ap3 light in reach. Side rails up X2. head and neck surgeon on. Pulse ox on. NIBP on. 18:07 Basic Metabolic Panel Sent. ap3 18:07 CBC with Diff Sent. ap3 18:07 High Sensitivity Troponin Sent. ap3 18:07 Protime (+inr) Sent. ap3 18:07 Ptt, Activated Sent. ap3 18:20 CT Head Brain wo Cont In Process Unspecified. EDMS 19:06 Attending Physician role handed off by Ryan Cordero DO rn 19:06 Abdon Atkins MD is Attending Physician. rn 20:23 CT Neck Angio In Process Unspecified. EDMS 20:24 CT Head Angio In Process Unspecified. EDMS 20:57 Samy Paul MD is Referral Physician. rn 21:00 No provider procedures requiring assistance completed. IV discontinued, intact, jb4 bleeding controlled, No redness/swelling at site. Pressure dressing applied. Administered Medications: 20:36 Drug: morphine 4 mg Route: IVP; Infused Over: 4 mins; Site: right antecubital; jb4 20:37 Drug: Zofran (Ondansetron) 4 mg Route: IVP; Site: right antecubital; jb4 Medication: 17:27 VIS not applicable for this client. ap3 Outcome: 20:57 Discharge ordered by . rn 21:21 Discharged to home ambulatory. jb4 21:21 Condition: stable 21:21 Discharge instructions given to patient, Instructed on discharge instructions, follow up and referral plans. medication usage, Demonstrated understanding of instructions, follow-up care, medications, Prescriptions given X 2. 21:21 Patient left the ED. jb4 NIH Stroke Scale - NIH Stroke Score Date: 08/03/2022 Time: 19:23 Total Score = 0 1a. Level of Consciousness (LOC) - 0(Alert) 1b. Level of Consciousness (LOC) (Month \T\ Age) - 0(Both) 1c. LOC Commands (Open \T\ Closes Eyes/Machine Setter And Repairer) - 0(Both) 2. Best Gaze (Lateral Gaze Paresis) - 0(Normal) 3. Visual Field Loss - 0(No visual loss) 4. Facial Palsy - 0(Normal) 5a. Left Arm: Motor (10-second hold) - 0(No drift) 5b. Right Arm: Motor (10-second hold) - 0(No drift) 6a. Left Leg: Motor (5-second hold - always test supine) - 0(No drift) 6b. Right Leg: Motor (5-second hold - always test supine) - 0(No drift) 7. Limb Ataxia (finger/nose \T\ heel/ramirez - test with eyes open) - 0(Absent) 8. Sensory Loss (pinprick arms/legs/face) - 0(Normal) 9. Best Language: Aphasia (description/naming/reading) - 0(No aphasia) 10. Dysarthria (speech clarity - read or repeat words) - 0(Normal) 11. Extinction and Inattention (visual/tactile/auditory/spatial/personal) - 0(No abnormality) Initials: ms3 Signatures: Dispatcher [employer] Abdon Marc MD MD rn Bryson, James, RN RN jb4 Letha Mayorga RN RN ap3 Ryan Cordero DO DO ms3 Lizet Rose dt4
[2022-08-03 22:20] VITALS: TEMP 98.3
[2022-08-03 22:23] VITALS: BP 140/94; O2SAT 96
--- NOTE | 2022-08-04 14:32 | EKG ---
Test Date: 2022-08-03 Test Time: 18:04:59 Flex O Writer Operator: ALP MEASUREMENT RESULTS: Intervals: Rate: 78 WA: 144 QRSD: 70 QT: 380 QTc: 433 [place]: P: 44 WA: 144 QRS: 41 T: 44 INTERPRETIVE STATEMENTS: Normal sinus rhythm Normal ECG Compared to ECG 07/15/2022 11:11:19 No significant changes Electronically Signed On 08-04-22 14:28:50 CDT by Tu Tapia
== END 2022-08-03 21:21 | disposition home or self-care (01) ==
LOC: ER 17:04
DX: M54.12 Radiculopathy, cervical region (principal); R20.2 Paresthesia of skin; I10 Essential (primary) hypertension; Z88.0 Allergy status to penicillin
CPT/HCPCS: 85025; 80048; 36415; 85610; 85730; 84484; 70450; 70496; 70498; Q9967; J2405; 93005

== ENCOUNTER 2025-02-14 10:45 | Emergency (ER) | payer BC ==
[2025-02-14 11:34] LABS: Absolute Eosinophils 0.1 K/uL (0-0.5); Absolute Lymphocytes (CBC) 1.7 K/uL (0.7-4.9); Absolute Neutrophil 6.3 K/uL (1.8-8.0); Basophils % 0.5 % (0-1.3); Eosinophils % 1.3 % (0-4.4); Hematocrit 44.2 % (39.6-49.0); Hemoglobin 15.5 g/dL (13.6-17.9); Lymphocytes % 18.5 % (15.3-44.8); MCH 28.7 pg (27.0-35.0); MCHC 35.2 g/dL (32.0-36.0); MCV 81.7 fL (80-100); MPV 6.7 fL (7.6-11.3); Monocytes % 10.5 % (3.3-12.3); Neutrophils % 69.2 % (41.7-73.7); Platelets 319 thou/uL (152-406); RBC Red Blood Cell Count 5.41 M/uL (4.33-5.43); Red Cell Distribution Width 13.2 % (12.1-15.2)
[2025-02-14 11:48] LABS: Albumin 3.6 g/dL (3.4-5.0); Albumin/Globulin Ratio 0.9 (1.1-1.8); Anion Gap 8.1 mEq/L (5.0-15.0); Bilirubin Total 0.3 mg/dL (0.2-1.0); Potassium 3.1 mEq/L (3.5-5.1); Protein, Total 7.6 g/dL (6.4-8.2)
--- NOTE | 2025-02-14 12:19 | RAD REPORT ---
EXAMINATION: US LOWER EXTREMITY VENOUS DOPPLER BILATERAL CLINICAL INDICATION: Male, 54 years old.PAIN TECHNIQUE: Complete bilateral duplex sonography of the lower extremity veins was performed. The exami nation included compression for vein patency, color Doppler imaging and flow augmentation in response to distal compression of the distal external iliac, common femoral, femoral, popliteal, cam breezy, tibial and great saphenous veins. [id number]. COMPARISON: No prior exams FINDINGS: Duplex sonography imaging demonstrates all deep examined to be fully compressible with spontaneous, p hasic and augmented flow bilaterally. IMPRESSION: No evidence of deep venous thrombosis seen in either lower extremity.
--- NOTE | 2025-02-14 12:31 | EDPHYS ---
Physician Documentation [facility] Name: Chandana Le Age: 54 yrs Sex: Male : 1970 Arrival Date: 02/14/2025 Time: 10:45 Bed 14 Private MD: ED Physician Ryan Cordero HPI: 02/14 12:30 This 54 yrs old Male presents to ER via Wheelchair with complaints of Swelling of Lower ms3 Extremity, Numbness of Feet. 12:30 54-year-old male with past medical history of seizures, hypertension, hyperlipidemia, ms3 depression presents to the emergency department for bilateral thigh pain that began on Monday. Patient states his legs feel as if they are tight. Patient states the discomfort is 10/10. Patient denies nausea, vomiting, fevers, chills. Patient states the pain is worse with walking.. Historical: - Allergies: 11:08 PENICILLINS; kc6 - PMHx: 11:08 Seizures; Hypertension; High Cholesterol; Depression; kc6 - PSHx: 11:08 None; kc6 - Immunization history:: Adult Immunizations up to date. - Infectious Disease History:: Denies. - Social history:: Smoking status: Patient denies any tobacco usage or history of. ROS: 12:30 Constitutional: Negative for fever, and chills. Cardiovascular: Negative for chest ms3 pain, and palpitations. Respiratory: Negative for shortness of breath, cough, wheezing, and pleuritic chest pain, Abdomen/GI: Negative for abdominal pain, nausea, vomiting, diarrhea, and constipation, 12:30 MS/extremity: Positive for Bilateral leg pain, Exam: 12:30 Constitutional: This is a well developed, well nourished patient who is awake, alert, ms3 and in no acute distress. Cardiovascular: Regular rate and rhythm with a normal S1 and S2. No gallops, murmurs, or rubs. Normal PMI, no JVD. No pulse deficits. Respiratory: Lungs have equal breath sounds bilaterally, clear to auscultation and percussion. No rales, rhonchi or wheezes noted. No increased work of breathing, no retractions or nasal flaring. Abdomen/GI: Soft, non-tender, with normal bowel sounds. No distension or tympany. No guarding or rebound. No evidence of tenderness throughout. Skin: Warm, dry with normal turgor. Normal color with no rashes, no lesions, and no evidence of cellulitis. 12:30 Musculoskeletal/extremity: Extremities: Bilateral quadriceps tender to palpation, 2+/4 dorsalis pedis pulses bilaterally, Vital Signs: 11:06 BP 148 / 98; Pulse 88; Resp 18 S; Temp 98(O); Pulse Ox 99% on R/A; Weight 99.79 kg (R); kc6 Height 5 ft. 7 in. (R); Pain 10/10; 13:04 BP 135 / 79; Pulse 80; Resp 18 S; Pulse Ox 99% on R/A; Pain 10/10; kc6 11:06 Body Mass Index 34.46 (99.79 kg, 170.18 cm) kc6 11:06 Pain Scale: Adult kc6 13:04 Pain Scale: Adult kc6 MDM: 11:23 Medical Screening Exam initiated ms3 12:30 Differential diagnosis: Rhabdomyolysis versus statin intolerance versus DVT. Data ms3 reviewed: vital signs, nurses notes, lab test result(s), radiologic studies, and as a result, I will discharge patient. Counseling: I had a detailed discussion with the patient and/or guardian regarding the historical points, exam findings, and any diagnostic results supporting the discharge/admit diagnosis, lab results, radiology results, the need for outpatient follow up, to return to the emergency department if symptoms worsen or persist or if there are any questions or concerns that arise at home. Special discussion: I discussed with the patient/guardian in detail that at this point there is no indication for admission to the hospital. It is understood, however, that if the symptoms persist or worsen the patient needs to return immediately for re-evaluation. ED course: Discussed labs and ultrasound results with patient. Patient without evidence of rhabdomyolysis, or DVT. Patient to follow-up with his primary care physician in 2 to 3 days. Patient was advised to stop atorvastatin and monitor his symptoms. All questions were answered. Return precautions discussed include worsening symptoms, or any other concerns.. 02/14 11:17 Order name: CBC with Diff; Complete Time: 11:55 ms3 02/14 11:17 Order name: CMP; Complete Time: 11:55 ms3 02/14 11:17 Order name: CK; Complete Time: 11:55 ms3 02/14 11:17 Order name: US Extremity Venous W Compression Phill; Complete Time: 12:25 ms3 Administered Medications: 13:03 Drug: HYDROcodone-acetaminophen PO 5 mg-325 mg 1 tabs PO once Route: PO; kc6 13:03 Drug: Potassium Chloride PO 40 mEq PO once Route: PO; kc6 Disposition Summary: 02/14/25 12:29 Discharge Ordered Notes: Location: Home ms3 Condition: Stable ms3 Diagnosis - Pain in left leg ms3 - Pain in right leg ms3 - Essential (primary) hypertension ms3 Followup: ms3 - With: Charanjit Weaver DO - When: 2 - 3 days - Reason: Recheck today's complaints Discharge Instructions: - Discharge Summary Sheet ms3 - Hypertension, Adult ms3 - Musculoskeletal Pain ms3 - Statin Intolerance ms3 Forms: - Medication Reconciliation Form ms3 - Antibiotic Education ms3 - Prescription Opioid Use ms3 - Patient Portal Instructions ms3 - Leadership Thank You Letter ms3 Signatures: Dispatcher [employer] EDMS Ryan Cordero DO DO ms3 Sylvia Alfonso RN RN kc6 Corrections: (The following items were deleted from the chart) 11:17 11:17 CBC+H.LAB.BRZ ordered. EDMS EDMS 11:17 11:17 COMPREHENSIVE METABOLIC PANEL+C.LAB.BRZ ordered. EDMS EDMS 11:17 11:17 CREATINE PHOSPHOKINASE+C.LAB.BRZ ordered. EDMS EDMS
--- NOTE | 2025-02-14 12:31 | ER ---
Nurse's Notes [facility] Name: Chandana Le Age: 54 yrs Sex: Male : 1970 Arrival Date: 02/14/2025 Time: 10:45 Bed 14 Private MD: Diagnosis: Pain in left leg;Pain in right leg;Essential (primary) hypertension Presentation: 02/14 11:06 Chief complaint: Patient states: numbness to the TAISHA lower extremities x3mo. pain to kc6 the knees and legs since Monday night. denies injury. pt also reports subjective swelling to both knees. Coronavirus screen: At this time, the client does not indicate any symptoms associated with coronavirus-19. Ebola Screen: No symptoms or risks identified at this time. Initial Sepsis Screen: Does the patient meet any 2 criteria? No. Patient's initial sepsis screen is negative. Does the patient have a suspected source of infection? No. Patient's initial sepsis screen is negative. Risk Assessment: Do you want to hurt yourself or someone else? Patient reports no desire to harm self or others. Onset of symptoms was February 14, 2025. 11:06 Method Of Arrival: Wheelchair kc6 11:06 Acuity: GLEN 3 kc6 Historical: - Allergies: 11:08 PENICILLINS; kc6 - PMHx: 11:08 Seizures; Hypertension; High Cholesterol; Depression; kc6 - PSHx: 11:08 None; kc6 - Immunization history:: Adult Immunizations up to date. - Infectious Disease History:: Denies. - Social history:: Smoking status: Patient denies any tobacco usage or history of. Screenin:08 [facility] ED Fall Risk Assessment (Adult) History of falling in the last 3 months, kc6 including since admission No falls in past 3 months (0 pts) Confusion or Disorientation No (0 pts) Intoxicated or Sedated No (0 pts) Impaired Gait No (0 pts) Mobility Assist Device Used No (0 pt) Altered Elimination No (0 pt) Score/Fall Risk Level 0 - 2 = Low Risk Oriented to surroundings. Abuse screen: Denies threats or abuse. Denies injuries from another. Nutritional screening: No deficits noted. Tuberculosis screening: No symptoms or risk factors identified. Assessment: 11:09 General: Appears in no apparent distress. uncomfortable, well groomed, well developed, kc6 Behavior is calm, cooperative, appropriate for age. Pain: Complains of pain in right foot, left foot, right leg and left leg Pain currently is 10. out of 10 on a pain scale. Pain began 2-3 days ago. Is continuous, Alleviated by rest, Aggravated by weight bearing, Noted to be grimacing, resistant to movement. Neuro: Level of Consciousness is awake, alert, obeys commands, Oriented to person, place, time, situation, Appropriate for age. Cardiovascular: Capillary refill < 3 seconds. Respiratory: Airway is patent Trachea midline Respiratory effort is even, unlabored, Respiratory pattern is regular, symmetrical. GI: No signs and/or symptoms were reported involving the gastrointestinal system. : No signs and/or symptoms were reported regarding the genitourinary system. EENT: No signs and/or symptoms were reported regarding the EENT system. Derm: No signs and/or symptoms reported regarding the dermatologic system. Skin is intact, is healthy with good turgor, Skin is pink, warm \T\ dry. Musculoskeletal: Range of motion: intact in all extremities, Reports numbness in right foot, left foot, right leg and left leg. 12:21 Reassessment: Patient appears in no apparent distress at this time. No changes from kc6 previously documented assessment. Patient and/or family updated on plan of care and expected duration. Pain level reassessed. Patient is alert, oriented x 3, equal unlabored respirations, skin warm/dry/pink. 13:04 Reassessment: Patient appears in no apparent distress at this time. No changes from kc6 previously documented assessment. Patient and/or family updated on plan of care and expected duration. Pain level reassessed. Patient is alert, oriented x 3, equal unlabored respirations, skin warm/dry/pink. Vital Signs: 11:06 BP 148 / 98; Pulse 88; Resp 18 S; Temp 98(O); Pulse Ox 99% on R/A; Weight 99.79 kg (R); kc6 Height 5 ft. 7 in. (R); Pain 10/10; 13:04 BP 135 / 79; Pulse 80; Resp 18 S; Pulse Ox 99% on R/A; Pain 10/10; kc6 11:06 Body Mass Index 34.46 (99.79 kg, 170.18 cm) [facility] 11:06 Pain Scale: Adult kc6 13:04 Pain Scale: Adult kc6 ED Course: 10:52 Patient arrived in ED. cj3 11:00 Ryan Cordero DO is Attending Physician. ms3 11:06 Sylvia Alfonso, RN is Primary Nurse. kc6 11:08 Triage completed. kc6 11:08 Arm band placed on. kc6 11:08 Patient has correct armband on for positive identification. Bed in low position. Call kc6 light in reach. Side rails up X2. Adult w/ patient. Pulse ox on. NIBP on. Door closed. Noise minimized. Lights dimmed. Pillow given. Verbal reassurance given. 11:09 Patient maintains SpO2 saturation greater than 95% on room air. kc6 11:27 Initial lab(s) drawn, by me, sent to lab. Inserted saline lock: 20 gauge in right kc6 forearm, using aseptic technique. Blood collected. Flushed with 10 mL NS. 12:11 US Extremity Venous W Compression Taisha In Process Unspecified. EDMS 12:29 Charanjit Weaver DO is Referral Physician. ms3 13:04 No provider procedures requiring assistance completed. IV discontinued, intact, kc6 bleeding controlled, No redness/swelling at site. Pressure dressing applied. Administered Medications: 13:03 Drug: HYDROcodone-acetaminophen PO 5 mg-325 mg 1 tabs PO once Route: PO; kc6 13:03 Drug: Potassium Chloride PO 40 mEq PO once Route: PO; kc6 Medication: 13:05 VIS not applicable for this client. kc6 Outcome: 12:29 Discharge ordered by MD. ms3 13:05 Discharged to home ambulatory, with family, kc6 13:05 Condition: good 13:05 Discharge instructions given to patient, family, Instructed on discharge instructions, follow up and referral plans. no drinking with medication, no driving heavy equipment, Demonstrated understanding of instructions, follow-up care, 13:05 Patient left the ED. kc6 Signatures: Dispatcher [employer] EDMS Ryan Cordero DO DO ms3 Sylvia Alfonso RN RN kc6 June Torres cj3 Corrections: (The following items were deleted from the chart) 11:11 11:06 Chief complaint: Patient states: numbness to the TAISHA lower extremities x3mo. pain kc6 to the knees and legs since Monday night. denies injury. kc6
[2025-02-14] MEDS ORDERED: POTASSIUM CL SA 10 MEQ TAB PO ONE (12:58)
[2025-02-14] MEDS ORDERED: HYDROCODONE/APAP 5/325 MG TAB ONE (12:59)
[2025-02-14 13:10] VITALS: TEMP 98; O2SAT 99
[2025-02-14 13:11] VITALS: BP 135/79
== END 2025-02-14 13:05 | disposition home or self-care (01) ==
LOC: ER 10:45
DX: M79.605 Pain in left leg (principal); M79.604 Pain in right leg; I10 Essential (primary) hypertension
CPT/HCPCS: 36415; 80053; 82550; 85025; 93970; 99284